=== PATIENT | female | born 1940 | race Caucasian/White ===

== ENCOUNTER 2016-06-18 05:50 | Inpatient (IN) | payer OTHER ==
[~2016-06-18] VITALS: Ht 165.1 cm; Wt 54.3 kg
[2016-06-18] VITALS (7 sets, daily range): BP systolic 145–159; BP diastolic 82–94; PULSE 75–93; TEMP 36.3–36.8; O2SAT 94–98; Ht 165.1 cm; Wt 54.3 kg
[~2016-06-18 05:50] MED LIST: ACET1TAB84 PO; ASPI81TA28 PO; CALC500C70 PO; DYZ PO; ESTR0.5T3 PO; GLUCTAB7 PO; MULT-845 PO; RXC5 PO; SIMV40TA2 PO
[2016-06-18] MEDS ORDERED: HYDROmorphone INJ 0.5 MG/0.5 ML SYR IV STA (06:41)
[2016-06-18] MEDS ORDERED: SODIUM CHLORIDE 0.9% 500ML 500 ML IV STA (06:41)
[2016-06-18] MEDS ORDERED: ONDANSETRON INJ 2 MG/ML 2 ML VIAL IV STA (06:41)
--- NOTE | 2016-06-18 06:45 | EMERGENCY ROOM VISIT NOTE ---
History Report prepared by Ramesh: [facility] Under the Supervision of: Dr. Albaro Gonsales M.D. First contact with patient: 06:35 Chief Complaint: NECK PAIN Stated Complaint: NECK PAIN History of Present Illness The patient is a 75 year old female who presents to the Emergency Room with complaints of persistent neck pain over the past several days. Her pain is worsened with any movement of her head and neck. The patient had neck surgery performed by Dr. Beverly 4 days [employer]. Since then, she has had continuous neck pain. She has also had significant difficulty swallowing and has been unable to take her pain medications. When she tries to drink liquids, she either chokes or develops muscular neck pain. She also complains of shaking, nausea and some abdominal discomfort. She has not had a bowel movement since prior to her surgery. Her current discomfort is a 9/10 in severity. Source of History: patient Onset: several days [employer] Position: neck Symptom Intensity: 9/10 Timing: other (persistent) Modifying Factors (Worsening): movement Associated Symptoms: + abdominal pain (discomfort - no BMs in a few days), + nausea Note: Other complaints: difficulty swallowing Review of Systems See HPI for pertinent positives & negatives. A total of 10 systems reviewed and were otherwise negative. Past Medical & Surgical Medical Problems: (1) Cervical stenosis of spinal canal (2) Dysphagia (3) HTN (hypertension) Surgical Problems: (1) H/O spinal fusion (2) H/O: hysterectomy (3) History of appendectomy Family History Cancer Heart disease Hypertension Lung disease Social History Smoking Status: Never Smoker Alcohol Use: none Marital Status: Occupation Status: unemployed Current/Historical Medications Scheduled Aspirin (Aspirin Ec), 81 MG PO QAM Estradiol (Estradiol), 1 TAB PO DAILY Wrzfnocbckf-Jorvjsckdjg-Jut C- (Glucosamine Chondroitin), 1 TAB PO QAM Multiple Vitamins W/ Minerals (Centrum Silver Adult 50+), 1 TAB PO QAM Simvastatin (Zocor), 40 MG PO QPM Triamterene/Hctz (Dyazide 37.5MG/25MG *), 1 CAP PO QAM Scheduled PRN Acetaminophen (Tylenol Arthritis Ext Rel), 650 MG PO Q8H PRN for Pain Oxycodone HCl (Oxycodone HCl), 5-10 MG PO Q4H PRN for moderate-severe pain Allergies Coded Allergies: Amlodipine (Verified Adverse Reaction, Intermediate, ANKLES SWELL UP, ) Physical Exam Vital Signs Date Time Temp Pulse Resp B/P Pulse Ox O2 Delivery O2 Flow Rate FiO2 06/18/16 10:04 100 06/18/16 09:40 96 18 137/90 98 Room Air 06/18/16 08:30 93 18 161/118 94 Nasal Cannula 2.0 06/18/16 07:13 77 06/18/16 07:08 95 Nasal Cannula 2.0 06/18/16 07:07 84 16 156/94 95 Nasal Cannula 2.0 06/18/16 07:06 94 Room Air 06/18/16 05:56 36.7 94 20 157/90 97 Room Air Physical Exam GENERAL: Patient is a healthy-appearing well-nourished 75 year old female HEAD: Normocephalic atraumatic EYES: Ocular movements intact pupils equal and react to light OROPHARYNX mucous membranes are moist no exudates present no erythema or edema present NECK: C-collar in place, surgical dressings in place. CHEST: Good equal expansion LUNGS: Clear and equal to auscultation CARDIAC: Normal S1 and S2 ABDOMEN: Soft nontender no guarding BACK: No CVA tenderness EXTREMITIES: No pain upon palpation normal muscle strength in all groups no clubbing cyanosis or edema NEURO: Patient is following commands is answering questions appropriately. Alert and oriented x3 Cranial Nerves 2-12 grossly intact Medical Decision & Procedures ER Provider Diagnostic Interpretation: X-ray results as stated below per my interpretation and radiologist interpretation. Other radiology results as stated below per my review and radiologist interpretation: CHEST ONE VIEW PORTABLE HISTORY: Atrial fibrillation. COMPARISON: Chest 06/09/2016. FINDINGS: Linear density at the left lung base consistent with subsegmental atelectasis or scarring. The lungs are otherwise clear. The heart is normal in size. No pleural effusions. No pneumothorax. Interval cervical spinal fusion hardware. IMPRESSION: No acute process. Electronically signed by: Bry Stout M.D. 06/18/2016 7:[address] DOSE: 486.01 mGy.cm HISTORY: Pain. Dyspnea. Pt c/o severe pain after surgery TECHNIQUE: Multiaxial CT images of the cervical spine were performed and reformatted in the sagittal and coronal plane without the use of contrast. COMPARISON: None. FINDINGS: No fractures. No subluxation. Prevertebral soft tissues and the C1-C2 interval are intact. No pneumothorax. Findings of an anterior fusion at C3, C4, C5, and C6. At C5 there has been a corpectomy. No well-defined evidence for major central stenotic process of the spinal canal or neural foramina. All hardware appears to be intact. Note is made of mild subglottic edema at the base of the epiglottis on the right as well as the region of the vocal cords on the right. This displaces the glottic airway slightly to the left. IMPRESSION: 1. Unremarkable postoperative changes to the cervical spine.. 2. No acute process of that structure. 3. Mild right lateral soft tissue edema base of the epiglottis and to lesser extent right focal cord region slightly displacing the airway to the left. Electronically signed by: Veto Grant M.D. 06/18/2016 7:57 AM SOFT TISSUE NECK CT WITH INTRAVENOUS CONTRAST HISTORY: Postop. Pt c/o severe neck pain TECHNIQUE: Multiaxial CT images of the neck were performed following the use of intravenous contrast. COMPARISON STUDY: Cervical spine MRI 06/01/2016. FINDINGS: No focal lung consolidations identified. Mild biapical pleural-parenchymal scarring. The trachea is midline and is patent. The visualized paranasal sinuses and mastoid air cells are clear. Interval anterior cervical discectomy and fusion from C3 through C6 with a C5 corpectomy and bone graft. The hardware appears intact. The major cervical vessels enhance normally. The left vertebral artery is hypoplastic in comparison to the right. The thyroid gland enhances normally. The submandibular and parotid glands are symmetric bilaterally. No loculated fluid collections to suggest an abscess. The epiglottis is normal in thickness. Mild edema/fluid within the prevertebral soft tissues and bilateral carotid spaces. There is also mild mucosal thickening within the hypopharynx and supraglottic soft tissues. This results in mild to moderate narrowing of the supraglottic airway. Symmetric fluid within the bilateral sternoclavicular joints. These are consistent with small to moderate joint effusions. IMPRESSION: 1. Postoperative changes consistent with C3-C6 anterior cervical discectomy and fusion. Please refer to the same day cervical spine CT for further evaluation of the bony structures. 2. Mild edema/fluid within the prevertebral soft tissues and bilateral carotid spaces. There is also mild mucosal thickening within the hypopharyngeal/supraglottic soft tissues. This results in mild to moderate narrowing of the supraglottic airway. However, the degree of edema/fluid within the neck is not unexpected for recent postoperative change. There are no loculated fluid collections to suggest an abscess. 3. The epiglottis is normal in thickness. 4. Symmetric mild to moderate bilateral sternoclavicular joint effusions. Electronically signed by: Bry Stout M.D. 06/18/2016 8:11 AM Laboratory Results 06/18/16 06:58 Red Blood Count 4.28, Mean Corpuscular Volume 89.7, Mean Corpuscular Hemoglobin 31.1, Mean Corpuscular Hemoglobin Concent 34.6, Mean Platelet Volume 10.5, Neutrophils (%) (Auto) 72.9, Lymphocytes (%) (Auto) 11.7, Monocytes (%) (Auto) 14.9, Eosinophils (%) (Auto) 0.2, Basophils (%) (Auto) 0.2, Neutrophils # (Auto ) 7.18, Lymphocytes # (Auto) 1.15, Monocytes # (Auto) 1.47, Eosinophils # (Auto ) 0.02, Basophils # (Auto) 0.02 06/18/16 06:58 Test 06/18/16 06:56 06/18/16 06:58 06/18/16 07:01 06/18/16 07:30 Bedside Glucose 105 mg/dl (70-90) White Blood Count 9.85 K/uL (4.8-10.8) Red Blood Count 4.28 M/uL (4.2-5.4) Hemoglobin 13.3 g/dL (12.0-16.0) Hematocrit 38.4 % (37-47) Mean Corpuscular Volume 89.7 fL (80-100) Mean Corpuscular Hemoglobin 31.1 pg (25-34) Mean Corpuscular Hemoglobin Concent 34.6 g/dl (32-36) Platelet Count 200 K/uL (130-400) Mean Platelet Volume 10.5 fL (7.4-10.4) Neutrophils (%) (Auto) 72.9 % Lymphocytes (%) (Auto) 11.7 % Monocytes (%) (Auto) 14.9 % Eosinophils (%) (Auto) 0.2 % Basophils (%) (Auto) 0.2 % Neutrophils # (Auto) 7.18 K/uL (1.4-6.5) Lymphocytes # (Auto) 1.15 K/uL (1.2-3.4) Monocytes # (Auto) 1.47 K/uL (0.11-0.59) Eosinophils # (Auto) 0.02 K/uL (0-0.5) Basophils # (Auto) 0.02 K/uL (0-0.2) RDW Standard Deviation 47.8 fL (36.4-46.3) RDW Coefficient of Variation 14.6 % (11.5-14.5) Immature Granulocyte % (Auto) 0.1 % Immature Granulocyte # (Auto) 0.01 K/uL (0.00-0.02) Erythrocyte Sedimentation Rate 15 mm/hr (0-21) Est Creatinine Clear Calc Drug Dose 87.0 ml/min Estimated GFR () 110.5 Estimated GFR (Non- 95.3 BUN/Creatinine Ratio 25.6 (10-20) Calcium Level 7.8 mg/dl (8.5-10.1) Total Bilirubin 1.0 mg/dl (0.2-1) Direct Bilirubin 0.2 mg/dl (0-0.2) Aspartate Amino Transf (AST/SGOT) 19 U/L (15-37) Alanine Aminotransferase (ALT/SGPT) 28 U/L (12-78) Alkaline Phosphatase 63 U/L (45-117) Total Creatine Kinase 88 U/L (26-192) Creatine Kinase MB 1.3 ng/ml (0.5-3.6) Creatine Kinase MB Ratio 1.5 (0-3.0) Troponin I 0.017 ng/ml (0-0.045) C-Reactive Protein 1.41 mg/dl (0-0.29) Total Protein 6.5 gm/dl (6.4-8.2) Albumin 3.4 gm/dl (3.4-5.0) Thyroid Stimulating Hormone (TSH) 1.730 uIu/ml (0.300-4.500) Bedside Hemoglobin 14.3 g/dl (12.0-16.0) Bedside Hematocrit 42 % (37-47) Bedside Sodium 139 mEq/L (135-144) Bedside Potassium 2.8 mEq/L (3.3-5.0) Bedside Chloride 96 mEq/L (101-112) Bedside Total CO2 25 mEq/l (24-31) Anion Gap 22.0 mmol/L (16-25) Bedside Blood Urea Nitrogen 13 mg/dl (7-18) Bedside Creatinine 0.4 mg/dl (0.6-1.3) Bedside Glucose (other) 115 mg/dl (70-99) Bedside Ionized Calcium (Marlo) 1.02 mmol/l (1.12-1.32) Urine Color YELLOW Urine Appearance CLEAR (CLEAR) Urine pH 8.5 (4.5-7.5) Urine Specific [place] 1.010 (1.000-1.030) Urine Protein NEG (NEG) Urine Glucose (UA) NEG (NEG) Urine Ketones NEG (NEG) Urine Occult Blood TRACE (NEG) Urine Nitrite NEG (NEG) Urine Bilirubin NEG (NEG) Urine Urobilinogen NEG (NEG) Urine Leukocyte Esterase NEG (NEG) Urine WBC (Auto) 0 /hpf (0-5) Urine RBC (Auto) 5-10 /hpf (0-4) Urine Hyaline Casts (Auto) 0 /lpf (0-5) Urine Epithelial Cells (Auto) 10-20 /lpf (0-5) Urine Bacteria (Auto) NEG (NEG) Test 06/18/16 08:30 Prothrombin Time 10.9 SECONDS (9.0-12.0) Prothromb Time International Ratio 1.0 (0.9-1.1) Activated Partial Thromboplast Time 24.2 SECONDS (21.0-31.0) Partial Thromboplastin Ratio 0.9 Labs reviewed by ED physician. Medications Administered Medications (Trade) Dose Ordered Sig/Uche Route Start Time Stop Time Status Last Admin Dose Admin Hydromorphone HCl (Dilaudid Inj) 0.5 mg NOW STAT IV 06/18/16 06:41 06/18/16 06:45 DC 06/18/16 07:02 0.5 MG Ondansetron HCl 4 mg 4 mg NOW STAT IV 06/18/16 06:41 06/18/16 06:45 DC 06/18/16 07:01 4 MG Sodium Chloride (Nss 500ml) 500 ml @ 999 mls/hr Q31M STAT IV 06/18/16 06:41 06/18/16 07:11 DC 06/18/16 06:41 999 MLS/HR Potassium Chloride (Kcl 10 Meq / Wtr) 10 meq NOW STAT IV 06/18/16 07:21 06/18/16 07:23 DC 06/18/16 08:02 10 MEQ Potassium Chloride (Kcl 10 Meq / Wtr) 10 meq NOW STAT IV 06/18/16 07:21 06/18/16 07:23 DC 06/18/16 09:02 10 MEQ ECG Indication: other (neck pain) Rate (beats per minute): 77 Rhythm: atrial flutter Findings: no acute ischemic change, other (old anterior infarct) Comparison ECG Date: 06/09/16 Change: Atrial fibrillation is new. ED Course 0637: Past medical records reviewed. The patient was evaluated in room B9. A complete history and physical examination was performed. 0641: Ordered NSS 500 ml @ 999 mls/hr IV, Zofran Inj 4 mg IV, Dilaudid Inj 0.5 mg IV. 0721: Ordered Edna Ciel Elix 40 meq PO, Kcl 10 meq/wtr 10 meq IV x2. 0728: I reassessed the patient and updated her on test results so far. 0945: Upon reexamination the patient is feeling slightly better. I discussed results and treatment plan with the patient. She verbalizes agreement and understanding. 0952: I discussed the case with Dr. Beverly - Orthopedic Surgery. He said he will trial her on Decadron and recommended that the patient be hospitalized through medicine. 1023: I discussed the case with Dr. Dan - [facility] [place] Hospitalist. The patient will be evaluated for further management. Medical Decision Differential diagnosis: Etiologies such as fracture, dislocation, neurovascular compromise, compartment syndrome, soft tissue injury, as well as others were entertained. This is a 75-year-old feel who presents emergency Department with continued neck pain after having neck surgery on Tuesday. In addition the patient is in a new onset atrial fibrillation. Her potassium was also found to be 2.8. The patient reports she has not been eating well or drinking due to the pain. For this reason IV was established, the patient was given Dilaudid, Zofran. Repeat examination revealed improvement patient's symptoms. The patient's CAT scan is concerning for some swelling so I did discuss the case with Dr. Beverly who agreed to see the patient. He asked that we admit the patient patient was in agreement with the treatment plan. Consults Time Called: 08 Consulting Physician: Dr. Beverly - Orthopedic Surgery Returned Call: [phone] I discussed the case with him. He said he will trial her on Decadron and recommended that the patient be hospitalized through medicine. Additional Consults: Time Called: 1020 Consulted Physician: Dr. Dan - [facility] [place] Hospitalist Returned Call: [phone] Additional Comments: I discussed the case with him. The patient will be evaluated for further management. Impression Primary Impression: Neck pain Additional Impressions: New onset atrial fibrillation, Hypokalemia Scribe Attestation The scribe's documentation has been prepared under my direction and personally reviewed by me in its entirety. I confirm that the note above accurately reflects all work, treatment, procedures, and medical decision making performed by me. Departure Information Dispostion Being Evaluated By Hospitalist Vasu Damon M.D. (PCP) Patient Instructions A Signature Page, My [facility]
[2016-06-18 07:10] LABS: BASO % 0.2 %; BASO ABS # 0.02 K/uL (0-0.2); COMPLETE YES; EOS % 0.2 %; HEMATOCRIT 38.4 % (37-47); IG% 0.1 %; LYMPH % 11.7 %; LYMPH ABS # 1.15 K/uL (1.2-3.4); MEAN CELL VOLUME 89.7 fL (80-100); MEAN CORPUSCULAR HEMOGLOBIN 31.1 pg (25-34); MEAN CORPUSCULAR HGB CONC 34.6 g/dl (32-36); MEAN PLATELET VOLUME 10.5 fL (7.4-10.4); MONO % 14.9 %; NEUT % 72.9 %; PLATELET COUNT 200 K/uL (130-400); RED BLOOD COUNT 4.28 M/uL (4.2-5.4); WHITE BLOOD COUNT 9.85 K/uL (4.8-10.8)
[2016-06-18 07:16] LABS: ISTAT CREATININE 0.4 mg/dl (0.6-1.3); ISTAT HEMOGLOBIN 14.3 g/dl (12.0-16.0); ISTAT IONIZED CALCIUM 1.02 mmol/l (1.12-1.32)
[2016-06-18] MEDS ORDERED: POTASSIUM CHLORIDE 20 MEQ/15 ML UDC PO STA ×2 (07:21→10:54)
[2016-06-18] MEDS ORDERED: POTASSIUM CHLORIDE 10 MEQ / 100ML WTR IV STA ×2 (07:21)
[2016-06-18 07:27] LABS: BUN/CREATININE RATIO 25.6 (10-20); CALCIUM 7.8 mg/dl (8.5-10.1); CREATININE 0.5 mg/dl (0.60-1.20); POTASSIUM 2.9 mmol/L (3.5-5.1)
[2016-06-18 07:38] LABS: C-REACTIVE PROTEIN 1.41 mg/dl (0-0.29); THYROID STIMULATING HORMONE 1.73 uIu/ml (0.300-4.500)
--- NOTE | 2016-06-18 07:59 | DIAGNOSTIC IMAGING REPORT ---
CERVICAL SPINE CT CT DOSE: 486.01 mGy.cm HISTORY: Pain. Dyspnea. Pt c/o severe pain after surgery TECHNIQUE: Multiaxial CT images of the cervical spine were performed and reformatted in the sagittal and coronal plane without the use of contrast. COMPARISON: None. FINDINGS: No fractures. No subluxation. Prevertebral soft tissues and the C1-C2 interval are intact. No pneumothorax. Findings of an anterior fusion at C3, C4, C5, and C6. At C5 there has been a corpectomy. No well-defined evidence for major central stenotic process of the spinal canal or neural foramina. All hardware appears to be intact. Note is made of mild subglottic edema at the base of the epiglottis on the right as well as the region of the vocal cords on the right. This displaces the glottic airway slightly to the left. IMPRESSION: 1. Unremarkable postoperative changes to the cervical spine.. 2. No acute process of that structure. 3. Mild right lateral soft tissue edema base of the epiglottis and to lesser extent right focal cord region slightly displacing the airway to the left. Electronically signed by: Veto Grant M.D. 06/18/2016 7:57 AM
[2016-06-18 08:00] LABS: URINE APPEARANCE CLEAR (CLEAR); URINE BILIRUBIN NEG (NEG); URINE COLOR YELLOW; URINE NITRITE NEG (NEG); URINE PH 8.5 (4.5-7.5); UROBILINOGEN NEG (NEG)
[2016-06-18] MEDS ORDERED: OPTIRAY 320 IV PRN (08:00)
[2016-06-18 08:01] LABS: MANUAL MICROSCOPIC REQUIRED? NO; REVIEW REQ? NO
--- NOTE | 2016-06-18 08:01 | DIAGNOSTIC IMAGING REPORT ---
CHEST ONE VIEW PORTABLE HISTORY: Atrial fibrillation. COMPARISON: Chest 06/09/2016. FINDINGS: Linear density at the left lung base consistent with subsegmental atelectasis or scarring. The lungs are otherwise clear. The heart is normal in size. No pleural effusions. No pneumothorax. Interval cervical spinal fusion hardware. IMPRESSION: No acute process. Electronically signed by: Bry Stout M.D. 06/18/2016 7:59 AM
[2016-06-18 08:07] LABS: CKMB/CK RATIO 1.5 (0-3.0)
--- NOTE | 2016-06-18 08:13 | DIAGNOSTIC IMAGING REPORT ---
SOFT TISSUE NECK CT WITH INTRAVENOUS CONTRAST HISTORY: Postop. Pt c/o severe neck pain TECHNIQUE: Multiaxial CT images of the neck were performed following the use of intravenous contrast. COMPARISON STUDY: Cervical spine MRI 06/01/2016. FINDINGS: No focal lung consolidations identified. Mild biapical pleural-parenchymal scarring. The trachea is midline and is patent. The visualized paranasal sinuses and mastoid air cells are clear. Interval anterior cervical discectomy and fusion from C3 through C6 with a C5 corpectomy and bone graft. The hardware appears intact. The major cervical vessels enhance normally. The left vertebral artery is hypoplastic in comparison to the right. The thyroid gland enhances normally. The submandibular and parotid glands are symmetric bilaterally. No loculated fluid collections to suggest an abscess. The epiglottis is normal in thickness. Mild edema/fluid within the prevertebral soft tissues and bilateral carotid spaces. There is also mild mucosal thickening within the hypopharynx and supraglottic soft tissues. This results in mild to moderate narrowing of the supraglottic airway. Symmetric fluid within the bilateral sternoclavicular joints. These are consistent with small to moderate joint effusions. IMPRESSION: 1. Postoperative changes consistent with C3-C6 anterior cervical discectomy and fusion. Please refer to the same day cervical spine CT for further evaluation of the bony structures. 2. Mild edema/fluid within the prevertebral soft tissues and bilateral carotid spaces. There is also mild mucosal thickening within the hypopharyngeal/supraglottic soft tissues. This results in mild to moderate narrowing of the supraglottic airway. However, the degree of edema/fluid within the neck is not unexpected for recent postoperative change. There are no loculated fluid collections to suggest an abscess. 3. The epiglottis is normal in thickness. 4. Symmetric mild to moderate bilateral sternoclavicular joint effusions. Electronically signed by: Bry Stout M.D. 06/18/2016 8:11 AM
[2016-06-18 08:54] LABS: PARTIAL THROMBOPLASTIN RATIO 0.9; PROTHROMBIN TIME (PATIENT) 10.9 SECONDS (9.0-12.0)
[2016-06-18] MEDS ORDERED: ONDANSETRON INJ 2 MG/ML 2 ML VIAL IV PRN (11:00)
[2016-06-18] MEDS ORDERED: NON-FORMULARY MEDICATION (Acetaminophen (Tylenol Arthritis Ext Rel) 650 MG) PO PRN (11:00)
[2016-06-18] MEDS ORDERED: MAGNESIUM HYDROXIDE SUSP 30 ML UDC PO PRN (11:00)
[2016-06-18] MEDS ORDERED: ALUMINUM/MAGNESIUM/SIMETH (MAALOX MAX) 30 ML UDC PO PRN (11:00)
[2016-06-18] MEDS ORDERED: ACETAMINOPHEN 325 MG TAB PO PRN (11:00)
[2016-06-18] MEDS ORDERED: IV FLUIDS COMPLETED PRN (11:15)
[2016-06-18] MEDS ORDERED: ONDANSETRON INJ 2 MG/ML 2 ML VIAL ONE (11:17)
--- NOTE | 2016-06-18 13:52 | ORTHOPEDIC CONSULTATION ---
DATE OF CONSULTATION: 06/18/2016 HISTORY OF PRESENT ILLNESS: Mrs. Dan is a 75-year-old female well known to de status post anterior cervical discectomy and fusion. She presents to the Emergency Room with difficulty swallowing and new set of rate controlled AFib. PHYSICAL EXAMINATION: Her incision is clean, dry and intact. There is some modest appreciable swelling in the cervical region, but it is not significant. There is no drainage. She has excellent strength to testing upper extremities and most importantly no evidence of stridor or difficulty breathing. IMAGING DATA: CAT scan of the cervical spine does demonstrate a small hematoma at the perioperative site. ASSESSMENT: Status post anterior cervical discectomy and fusion, corpectomy. PLAN: At this time, we did discuss possible I\T\D evacuation of hematoma. At this point; however, she is breathing without any shortness of breath or any difficulty. She demonstrates 90% SpO2 on room air. She is comfortable and ambulating well. She would prefer to continue observation, which is completely reasonable. She will be admitted and we are following her closely. We will begin IV Decadron to decrease inflammation and hopefully, assist with her swallowing.
[2016-06-18] MEDS ORDERED: HYDROmorphone INJ 1 MG/ML SYR IV PRN (14:15)
[2016-06-18] MEDS ORDERED: ONDANSETRON 8 MG/54 ML D5W IV ONE (14:30)
[2016-06-18] MEDS ORDERED: HYDROmorphone INJ 1 MG/ML SYR IV STA (14:43)
[2016-06-18] MEDS ORDERED: SOD PHOSPHATE/SOD BIPHOSPHATE ENEMA 132 ML BTL PR STA (14:43)
[2016-06-18] MEDS ORDERED: ONDANSETRON INJ 8 MG in DEXTROSE 5% 50ML 50 ML IV ONE (14:45)
[2016-06-18] MEDS: SODIUM CHLOR 0.45% + 20MEQ KCL 1,000 ML IV SCH (14:58)
[2016-06-18] MEDS ORDERED: DEXAMETHASONE INJ 4 MG in SYRINGE 0 ML IV ONE (15:00)
--- NOTE | 2016-06-18 15:20 | History and Physical ---
History & Physical admit #[id number]
[2016-06-18] MEDS: ONDANSETRON INJ 2 MG/ML 2 ML VIAL IV. SCH ×2 (16:00→22:18)
[2016-06-18 16:23] LABS: CALCIUM 8.3 mg/dl (8.5-10.1); CREATININE 0.53 mg/dl (0.60-1.20); MAGNESIUM 1.9 mg/dl (1.8-2.4)
--- NOTE | 2016-06-18 16:28 | HISTORY & PHYSICAL EXAMINATION ---
DATE OF ADMISSION: 06/18/2016 CHIEF COMPLAINT: Throat pain, abdominal pain, nausea and difficulty swallowing. HISTORY OF PRESENT ILLNESS: The patient is a 75-year-old female who was just discharged 2 days ago after a neck surgery, it was like a C3-C4 anterior cervical discectomy and fusion and C5 corpectomy and allograft. She noted she was generally feeling lousy, but feels worse now. She has neck pain. She has abdominal pain. She has constant nausea. She cannot eat or or drink and she feels like she is getting dehydrated. She notes she has not had a bowel movement at least in the last couple of days. She has left lower and a little bit diffuse abdominal pain which she relates feels pretty consistent with constipation. She does not have any shortness of breath. She notes the lower abdominal and neck symptoms are about equal. REVIEW OF SYSTEMS: Otherwise negative, as best can be ascertained. PAST MEDICAL HISTORY: Cervical spine disease, valvular heart disease, hypertension, lumbar disc degeneration, hyperlipidemia, prior hypokalemia, possible prior atrial fibrillation, osteoarthritis. MEDICATIONS: Aspirin 81 mg daily, Celebrex 200 mg daily, estradiol daily, glucosamine 1500 mg as directed, multivitamin daily, oxycodone 5 mg q. 4 hours p.r.n. pain, simvastatin 40 mg at bedtime, Dyazide 37.5/25 daily, Tylenol p.r.n. pain, Valtrex p.r.n. cold sore outbreak. PAST SURGICAL HISTORY: Most relevant is her procedure last week with her C-spine. She has also had other back surgeries, appendectomy, tonsillectomy, vaginal hysterectomy and bilateral temporal brow lift that was due to impact on her vision. FAMILY HISTORY: Her mother had asthma. Brother with hypertension and family history of melanoma. SOCIAL HISTORY: She has never smoked. She is retired. She has a supportive family. PHYSICAL EXAMINATION: VITAL SIGNS: Her initial vitals showed a temp 36.7, pulse 94, respiratory rate 20, blood pressure 157/90, 97% on room air. GENERAL: She is awake, alert, oriented x3, uncomfortable appearing, rolling around the bed in degree due to uncomfortable belly, uncomfortable neck and nausea. She shows no respiratory distress. HEENT: Normocephalic, atraumatic. Mucous membranes slightly dry. NECK: Shows an anterior incision without any surrounding bruising or erythema, no exudate. The incision appears to be clean and dry. CARDIOVASCULAR: Irregularly irregular without any clearly audible rubs, murmurs, or gallops. LUNGS: Clear to auscultation bilaterally. No rales, rhonchi, or wheezes with good effort. ABDOMEN: Soft, nondistended. Mild left lower quadrant tenderness without any guarding, rebound or rigidity. The remainder of her abdomen is benign. EXTREMITIES: Show no cyanosis, clubbing or edema. NEUROLOGIC: Full exam is difficult to assess due to her pain and nausea and therefore lack of cooperation, but she shows no focal deficits in her arms or legs and cranial nerves II through XII are grossly intact as well. SKIN: Shows no rashes, no pallor or icterus. Again, no erythema around her incision. MUSCULOSKELETAL: Full exam is deferred at this time but shows no gross lesions. MENTAL STATUS: Shows her to be a bit agitated and irritable but good recent and remote recall. Mood and affect, fitting to the situation. LABS AND DIAGNOSTICS: CBC shows a white count of 9.85, hemoglobin 13.3, platelets 200, sed rate of 15. Complete metabolic panel with sodium 138, potassium 2.9, chloride 102, CO2 of 28, BUN 13, creatinine 0.5, calcium 7.8, glucose 111, total bilirubin 1 with a direct of 0.2, AST 19, ALT 28, alkaline phosphatase 63. Cardiac enzymes are negative including a troponin of 0.017. CRP of 1.41, total protein 6.5, albumin 3.4. TSH 1.730. PT 10.9, PTT 24.2. Urinalysis yellow, clear, specific gravity 1.010, trace blood, 5-10 red cells, 10-[address] soft tissue of the neck shows biapical pleural parenchymal scarring. Trachea midline and patent, visualized perinasal sinuses and mastoid air cells are clear, anterior discectomy and fusion C3 through C6 with the C5 corpectomy and bone graft, hardware appearing intact. Cervical vessels enhancing normally, left vertebral artery hypoplastic compared to the right. Thyroid enhances normally, submandibular and parotid glands are symmetric bilaterally, no loculated fluid collections to suggest an abscess, epiglottis normal thickness, mild edema and fluid within the prevertebral soft tissues and bilateral carotid spaces, mild mucosal thickening within the hypopharynx and supraglottic soft tissues resulting in moderate narrowing of the supraglottic airway, symmetric fluid within the bilateral sternoclavicular joints consistent with small to moderate joint effusion. CT C-spine more in terms of bony windows shows prevertebral soft tissue C1-C2 interval are intact. No pneumothorax. Findings of an anterior fusion, C3, C4, C5 and C6. At C5 there is a corpectomy. No evidence for major central stenosis. Hardware appears to be intact. Subglottic edema at the base of the epiglottis on the right in the region of the vocal cords displacing the glottic airway slightly to the left. Chest x-ray shows a linear density at the left lung base consistent with subsegmental atelectasis or scarring. Lungs are otherwise clear. Heart normal in size. ASSESSMENT AND PLAN: 1. Neck pain. This appears to be due to postop edema. There is nothing that really appears to be hematoma or infection. Orthopedics has seen her and wants to initiate Decadron. Will continue this IV as well as meds for pain control and nausea control. 2. Lower abdominal pain. The patient appears to be correcting her presumptive diagnosis that this relates to constipation, given that she is not really able to take p.o. very well right now. We will utilize an enema. I suspect that once she has better bowel movements, a lot of her pain and nausea will improve a good deal too. 3. Hypokalemia, probably due to poor p.o. intake. She does appear to have a prior history of having some hypokalemia. If this is persistent, we will need to research further, but for now will correct and check a magnesium and then follow up levels later on today. 4. Atrial fibrillation. It is unclear if this is totally new to the patient or not. As I was talking to her about it, she seemed unaware if this is a prior diagnosis, but she was also in a decent amount of pain and nausea and given that it is not really an acute issue at the time we agreed to discuss it further later on, but on chart review it does note that she has had atrial fibrillation probably at least once before. At any rate, she is rate controlled. Her most recent echocardiogram was just a little over 2 months ago showing an ejection fraction of 55%-60%, but moderate mitral regurgitation, moderate tricuspid regurg and mild aortic regurge, so I suspect at least to a degree her atrial fibrillation is from valvular heart disease. Her TSH was normal at 1.73. She is rate controlled and her blood pressures allow margin of error to initiate meds. Once she is able to take p.o. given that it appears to be from leaky valves on the left side that are probably putting back pressure on the left atrium, will initiate a low dose carvedilol given her rates being overall good, probably will start 3.125 b.i.d. and then follow. We will also start to discuss with her potential risks and benefits of anticoagulation. 5. Nausea. We will utilize Zofran scheduled until tomorrow and then reassess towards p.r.n. 6. Difficulty taking p.o. We will gently hydrate her with half normal with 20 of potassium at 75 an hour. 7. Deep venous thrombosis prophylaxis. Hold off on any anticoagulation for now given her recent neck surgery. I discussed with orthopedics and it certainly are reticent for her to be on any anticoagulation at this time unless absolutely necessary, which is understandable.
--- NOTE | 2016-06-18 18:45 | Progress Note ---
Progress Note revisited feels that neck swelling is going down able to handle some liquids better than she thought she could no BM yet but generally feeling better overall
[2016-06-18] MEDS: DEXAMETHASONE INJ 4 MG in SYRINGE 0 ML IV SCH (19:46)
[2016-06-18] MEDS: POLYETHYLENE (MIRALAX) 17 GM PACK PO SCH (20:12)
[2016-06-19] MEDS: DEXAMETHASONE INJ 4 MG in SYRINGE 0 ML IV SCH ×4 (02:00→20:18)
[2016-06-19 04:05] VITALS: BP 153/84; PULSE 77; TEMP 36.7; O2SAT 97
[2016-06-19] MEDS: ONDANSETRON INJ 2 MG/ML 2 ML VIAL IV. SCH ×3 (04:32→15:52)
[2016-06-19] MEDS: SODIUM CHLOR 0.45% + 20MEQ KCL 1,000 ML IV SCH ×2 (04:32→18:29)
[2016-06-19] MEDS ORDERED: PERFLUTREN LIPID MICROSPHERE (DEFINITY) IV ONE (07:26)
[2016-06-19] MEDS ORDERED: NON-FORMULARY MEDICATION (Glucosamine-Chondroitin-Vit C- (Glucosamine Chondroitin) 1 TAB) PO SCH (09:00)
[2016-06-19] MEDS ORDERED: ESTRADIOL 1 MG TAB PO SCH (09:00)
[2016-06-19] MEDS: ASPIRIN 81 MG ECTAB PO SCH (09:09)
[2016-06-19] MEDS: POLYETHYLENE (MIRALAX) 17 GM PACK PO SCH ×2 (09:10→20:18)
--- NOTE | 2016-06-19 10:05 | PROGRESS NOTE ---
DATE: 06/19/2016 DATE: 06/19/2016. SUBJECTIVE: This morning she states she is tolerating liquids better. Her pain is much more controlled. She denies any arm symptoms. She still demonstrates swelling in the perioperative region in the cervical spine. It is nontender. She is able to control secretions and denies any shortness of breath. ASSESSMENT: Status post anterior cervical discectomy, corpectomy and fusion with postop hematoma. PLAN: At this time, we both agree continued observation is warranted. We will reassess her tomorrow. She will notify us if there are any changes in her symptoms.
[2016-06-19 11:59] VITALS: BP 129/69; PULSE 98; TEMP 36.8; O2SAT 91
--- NOTE | 2016-06-19 15:05 | ECHOCARDIOGRAM REPORT ---
*NOTICE TO RECEIVING DEMOCRAT AGENCY This information is strictly Confidential and protected under [place] law. [place] law prohibits you from making any further disclosure of this information unless further disclosure is expressly permitted by the written consent of the person to whom it pertains or is authorized by law. A general authorization for the release of medical or other information is not sufficient for this purpose. Hospital accepts no responsibility if the information is made available to any other person, INCLUDING THE PATIENT. Interpretation Summary * Name: SARITHA PRASAD Study Date: 06/19/2016 06:48 AM BP: 153/84 mmHg * Patient Location: [facility]\S\N283\S\2 HR: 70 * : 1940 (M/d/yyyy) Gender: Female Height: 64 in * Age: 75 yrs Ethnicity: [place] Weight: 132 lb * Ordering Physician: Soham Hopkins * Referring Physician: Self, Referred * Performed By: Alex Grande RDCS * * Reason For Study: A-fib * BSA: 1.6 m2 * -- Conclusions -- * 1. Normal left ventricular size and systolic function. EF 60-65%. No regional wall motion abnormalities. No left ventricular hypertrophy. Type 1 diastolic dysfunction. * 2. The left atrium is mildly dilated. * 3. Mild aortic regurgitation. Sclerotic aortic valve without significant stenosis. * 4. Mild to moderate mitral regurgitation with restricted posterior leaflet. * 5. Mild to moderate tricuspid regurgitation. * 6. Normal estimated right ventricular systolic pressure; 33mmHg. * 7. Technically difficult study, enhanced with IV Definity. * 8. No prior study available for comparison. Procedure Details * A complete two-dimensional transthoracic echocardiogram was performed (2D, M-mode, Doppler and color flow Doppler). * The study was technically difficult. * The study was technically difficult, but visualization was adequate with the administration of Definity ultrasound contrast. * A contrast injection of Definity was performed to improve assessment of LV function. * Contrast was injected into an intravenous site in the right arm. * One vial of Definity ultrasound contrast was diluted in normal saline to a total volume of 10 ml. A total of '2' ml of solution was administered during imaging. * Lot # [id number] of Definity utilized for procedure. * Expiration date DEC 04. * The attending nurse who injected the contrast agent was DEION Barba. Left Ventricle * Normal left ventricular size and systolic function. EF 60-65%. No regional wall motion abnormalities. Type 1 diastolic dysfunction. * There is normal left ventricular wall thickness. Right Ventricle * The right ventricle is normal in size and function. * The right ventricular systolic function is normal as assessed by tricuspid annular plane systolic excursion (TAPSE) (normal >1.5 cm). Atria * The left atrium is mildly dilated. * Right atrial size is normal. * There is no evidence of atrial septal defect, but resolution does not allow assessment for a patent foramen ovale. Mitral Valve * Restricted posterior leaflet. * There is no mitral valve stenosis. * There is mild to moderate mitral regurgitation. Tricuspid Valve * The tricuspid valve anatomy is normal. * There is no tricuspid stenosis. * There is mild to moderate tricuspid regurgitation. Aortic Valve * The aortic valve is trileaflet. * Sclerotic aortic valve without significant stenosis. * Mild aortic regurgitation. Pulmonic Valve * The pulmonary valve is inadequately visualized, but the Doppler data is adequate for interpretation. * There is no pulmonic valvular stenosis. * Mild pulmonic valvular regurgitation. Great Vessels * The aortic root is normal size. * Ascending aorta of normal dimension * Mildly blunted pulmonary venous flow pattern. Pericardium/Pleural * There is no pericardial effusion. Great Vessels * Normal inferior vena cava size and collapsability with sniff indicates a normal right atrial pressure of 3 mmHg MMode 2D Measurements and Calculations IVSd 0.92 cm IVSs 1.3 cm LVIDd 4.5 cm LVIDs 3.0 cm LVPWd 0.86 cm LVPWs 1.4 cm IVS/LVPW 1.1 FS 33.5 % EDV(Teich) 94.5 ml ESV(Teich) 35.6 ml EF(Teich) 62.4 % EDV(cubed) 93.8 ml ESV(cubed) 27.5 ml EF(cubed) 70.6 % % IVS thick 36.6 % % LVPW thick 60.8 % LV mass(C)d 132.8 grams LV mass(C)dI 81.0 grams/m\S\2 LV mass(C)s 128.4 grams LV mass(C)sI 78.3 grams/m\S\2 SV(Teich) 59.0 ml SI(Teich) 36.0 ml/m\S\2 SV(cubed) 66.2 ml SI(cubed) 40.4 ml/m\S\2 EPSS 0.58 cm Ao root diam 2.7 cm Ao root area 5.5 cm\S\2 ACS 1.8 cm LA dimension 3.6 cm asc Aorta Diam 2.5 cm LA/Ao 1.3 LVOT diam 2.0 cm LVOT area 3.2 cm\S\2 LVAd ap4 19.3 cm\S\2 LVLd ap4 5.6 cm EDV(MOD-sp4) 55.0 ml LVAs ap4 9.4 cm\S\2 LVLs ap4 4.4 cm ESV(MOD-sp4) 18.0 ml EF(MOD-sp4) 67.3 % LVAd ap2 26.8 cm\S\2 LVLd ap2 6.7 cm EDV(MOD-sp2) 89.0 ml LVAs ap2 13.3 cm\S\2 LVLs ap2 5.0 cm ESV(MOD-sp2) 29.0 ml EF(MOD-sp2) 67.4 % SV(MOD-sp4) 37.0 ml SI(MOD-sp4) 22.6 ml/m\S\2 SV(MOD-sp2) 60.0 ml SI(MOD-sp2) 36.6 ml/m\S\2 Doppler Measurements and Calculations MV E max silverio 111.1 cm/sec MV A max silverio 112.3 cm/sec MV E/A 0.99 MV dec time 0.19 sec Ao V2 max 196.1 cm/sec Ao max PG 15.4 mmHg Ao max PG (full) 11.7 mmHg Ao V2 mean 120.5 cm/sec Ao mean PG 6.8 mmHg Ao mean PG (full) 5.1 mmHg Ao V2 VTI 40.3 cm VIVEK(I,A) 1.6 cm\S\2 VIVEK(I,D) 1.6 cm\S\2 VIVEK(V,A) 1.6 cm\S\2 VIVEK(V,D) 1.6 cm\S\2 AI max silverio 512.0 cm/sec AI max PG 103.7 mmHg AI dec slope 304.7 cm/sec\S\2 AI P1/2t 492.1 msec LV V1 max PG 3.7 mmHg LV V1 mean PG 1.7 mmHg LV V1 max 95.9 cm/sec LV V1 mean 60.4 cm/sec LV V1 VTI 19.8 cm MR max silverio 657.0 cm/sec MR max PG 172.7 mmHg MR mean silverio 524.0 cm/sec MR mean PG 117.0 mmHg MR VTI 249.0 cm SV(Ao) 223.6 ml SI(Ao) 136.4 ml/m\S\2 SV(LVOT) 63.0 ml SI(LVOT) 38.4 ml/m\S\2 PA V2 max 95.0 cm/sec PA max PG 3.6 mmHg TR max silverio 274.0 cm/sec RVSP(TR) 33.0 mmHg RAP systole 3.0 mmHg
[2016-06-19 15:13] VITALS: BP 163/96; PULSE 86; TEMP 37; O2SAT 96
--- NOTE | 2016-06-19 18:18 | Progress Note ---
Subjective Date of Service: Jun 19, 2016. Subjective Pt evaluation today including: conversation w/ patient, conversation w/ family , physical exam, chart review, lab review, review of studies, conversation w/ cosmetic consultant, review of inpatient medication list feeling better - not great yet but definitely better. smiling. able to tolerate liquids well, but when she took her baby asa she then felt it stuck in her throat and then threw it up. since then feeling Ok. neck pain improving. no significant abdominal pain. never heard of having afib before. does know about MR and AI. Problem List Medical Problems: (1) Hypokalemia Status: Acute (2) Neck pain Status: Acute (3) New onset atrial fibrillation Status: Acute Review of Systems ros otherwise negative except for as above Objective Vital Signs Date Time Temp Pulse Resp B/P Pulse Ox O2 Delivery O2 Flow Rate FiO2 06/19/16 16:00 Room Air 06/19/16 15:13 37.0 86 18 163/96 96 06/19/16 12:00 Room Air 06/19/16 11:59 36.8 98 18 129/69 91 Room Air 06/19/16 08:00 Room Air 06/19/16 04:05 36.7 77 20 153/84 97 Room Air 06/19/16 04:00 Room Air 06/19/16 00:05 Room Air 06/18/16 23:34 36.7 75 19 149/82 98 Room Air 06/18/16 20:05 94 Room Air 06/18/16 19:23 36.5 93 20 156/94 94 Room Air Physical Exam General Appearance: no apparent distress Eyes: EOMI ENT: hearing grossly normal Neck: trachea midline, + pertinent finding (no extensive bruising, see neck exam done by Dr Beverly while i was in the room) Respiratory/Chest: no respiratory distress, no accessory muscle use Cardiovascular: regular rate, rhythm (converted to NSR - rate controlled) Extremities: normal range of motion Neurologic/Psychiatric: custom harvester II-XII nml as tested, alert, normal mood/affect Skin: normal color, warm/dry Assessment and Plan neck pain - due to post op changes. ongoing supportive care dysphagia - due to above, swelling. improving on decadron. continue day-to- day. home once able to tolerate PO well enough to sustain at home; if worsens or clearly on a plateau without day to day improvement, then would consider barium swallow to eval for degree of true compression. is improving, however. continue clears for today per ortho new onset afib -due to MR and atrial stretch -for now rate controlled - converted to NSR. once able to tolerate PO well - would add 3.125mg coreg daily-BID (depending on vitals) for rate control; discussed will need anticoagulation (since valvular, will have look to warfarin for now) - but we discussed risks/benefits (pt/family/myself/ortho) and for now will hold off until neck heals more so as to avoid iatrogenic bleeding complications in neck valvular heart disease -no active CHF - coreg as above once better able to take PO hypokalemia -improved DVT proph -anticoagulants relatively contraindicated due to bleed risk w neck; mechanical proph of dubious benefit and possible risk (falls, etc) - ambulation to be utilized. dispo - home once able to eat and drink reasonably
[2016-06-19 19:17] VITALS: BP 143/80; PULSE 66; TEMP 36.8; O2SAT 66
[2016-06-20] VITALS (8 sets, daily range): BP systolic 137–172; BP diastolic 68–96; PULSE 65–81; TEMP 36.5–36.9; O2SAT 93–99
[2016-06-20] MEDS: DEXAMETHASONE INJ 4 MG in SYRINGE 0 ML IV SCH ×4 (02:29→20:21)
[2016-06-20] MEDS: SODIUM CHLOR 0.45% + 20MEQ KCL 1,000 ML IV SCH ×2 (05:57→20:19)
[2016-06-20] MEDS: ASPIRIN 81 MG ECTAB PO SCH (08:21)
[2016-06-20] MEDS: POLYETHYLENE (MIRALAX) 17 GM PACK PO SCH ×2 (08:21→20:20)
[2016-06-20] MEDS ORDERED: NURSING DECISION MEDICATION ORDER SCH (20:30)
[2016-06-20] MEDS ORDERED: SODIUM CHLORIDE 0.65% NA SOLN 45 ML (OCEAN) PRN (20:45)
--- NOTE | 2016-06-20 23:02 | Progress Note ---
Subjective Date of Service: Jun 20, 2016. Subjective Pt evaluation today including: conversation w/ patient, physical exam, chart review, lab review Pain: none PO Intake: taking in clears, but having difficulty w/ that as well Voiding: no voiding problems continues with dysphagia - even jello / hot brother are difficult to swallow no numbness in arms/legs no sob or dyspnea Problem List Medical Problems: (1) Hypokalemia Status: Acute (2) Neck pain Status: Acute (3) New onset atrial fibrillation Status: Acute Review of Systems Constitutional: No fever ENT: + nasal symptoms Respiratory: No cough Cardiac: No chest pain Abdomen: No pain Objective Vital Signs Date Time Temp Pulse Resp B/P Pulse Ox O2 Delivery O2 Flow Rate FiO2 06/20/16 20:05 Room Air 06/20/16 19:24 36.9 67 20 152/84 93 Room Air 06/20/16 16:00 Room Air 06/20/16 15:19 36.8 68 18 150/85 97 Room Air 06/20/16 12:00 Room Air 06/20/16 11:23 36.9 66 18 144/82 97 Room Air 06/20/16 08:12 36.6 72 18 140/82 97 Room Air 06/20/16 08:00 Room Air 06/20/16 05:03 36.6 71 16 137/68 94 Room Air 06/20/16 04:00 Room Air 06/20/16 02:19 65 18 149/82 97 Room Air 06/20/16 00:30 36.5 81 20 172/96 99 Room Air 06/20/16 00:05 Room Air Physical Exam General Appearance: no apparent distress ENT: pharynx normal Neck: no JVD, + pertinent finding (incision right neck clean) Respiratory/Chest: lungs clear, no respiratory distress, no accessory muscle use Cardiovascular: regular rate, rhythm, no gallop, + systolic murmur (/6 LSB) Abdomen: normal bowel sounds, non tender, soft, no organomegaly Extremities: no pedal edema Assessment and Plan 75yo female: 1. dysphagia - 2nd to cervical spine swelling in the setting of recent c-spine surgery as well as reported hematoma. Remains on decadron. Will leave as is. Speech therapy consult in AM for swallow eval. No advancement in diet (clears). 2. recent cervical spine surgery by Dr. Beverly - no surgical intervention needed at this time for swelling. 3. recent paroxysmal a. fib - resolved, remains in NSR. No anticoagulation for at least 1 month according to orthopedics. Defer on beta lolita for now. 4. DVT proph - SCDs. 5. FEN - continue fluids, repeat BMP in am. In my clinical judgment this beneficiary meets acute admission criteria, established by [facility], that includes being hospitalized through two midnights. Continued [facility] stay due to: inadequate po fluid intake, inadequate oral pain control
[2016-06-21] MEDS: DEXAMETHASONE INJ 4 MG in SYRINGE 0 ML IV SCH ×4 (02:10→21:41)
[2016-06-21 05:06] VITALS: BP 163/84; PULSE 60; TEMP 36.7; O2SAT 95
[2016-06-21 07:21] VITALS: BP 155/85; PULSE 63; TEMP 36.6; O2SAT 97
[2016-06-21] MEDS: POLYETHYLENE (MIRALAX) 17 GM PACK PO SCH ×2 (07:35→21:00)
[2016-06-21] MEDS: ASPIRIN 81 MG ECTAB PO SCH (07:35)
[2016-06-21 08:25] LABS: BUN/CREATININE RATIO 25.4 (10-20); CALCIUM 8.4 mg/dl (8.5-10.1); CREATININE 0.56 mg/dl (0.60-1.20)
[2016-06-21] MEDS: SODIUM CHLOR 0.45% + 20MEQ KCL 1,000 ML IV SCH (10:48)
[2016-06-21 11:35] VITALS: BP 157/81; PULSE 60; TEMP 36.7; O2SAT 96
--- NOTE | 2016-06-21 12:42 | DIAGNOSTIC IMAGING REPORT ---
MODIFIED BARIUM SWALLOW CLINICAL HISTORY: Dysphagia status post cervical spine surgery. COMPARISON STUDY: No previous studies for comparison. FLUOROSCOPY TIME: 1.7 minutes. FINDINGS: No aspiration was identified with thin liquids, nectar thick liquids, pudding or crackers with paste. However, epiglottic inversion and laryngeal elevation were markedly diminished. Significant residuals were noted within the pyriform sinuses and vallecula. An anterior cervical spine fusion and discectomy was noted with corpectomy. IMPRESSION: 1. No tracheal aspiration identified. 2. Impaired swallowing mechanism with diminished epiglottic inversion and laryngeal elevation. Residuals within the vallecula and pyriform sinuses. 3. Full recommendations by speech pathology to follow. Electronically signed by: Devonte Vu M.D. 06/21/2016 12:41 PM
--- NOTE | 2016-06-21 13:07 | PROGRESS NOTE ---
DATE: 06/21/2016 SUBJECTIVE: She is feeling modest improvement over the past several days. She is tolerating liquids better today than yesterday. OBJECTIVE: On exam, the neck is still swollen but again I appreciate a modest improvement on a daily basis. There is no erythema or drainage. She is nontender. ASSESSMENT: Dysphagia status post anterior cervical diskectomy and fusion. PLAN: At this time, she would like to pursue a soft diet. We will hopefully allow her to begin us today. It is my understanding she is scheduled for a swallowing evaluation today. Will await these results. Hopefully, the patient will be discharged home tomorrow.
[2016-06-21 15:12] VITALS: BP 136/76; PULSE 72; TEMP 37; O2SAT 96
[2016-06-21] MEDS: BOOST PLUS VANILLA PO SCH ×2 (18:06)
--- NOTE | 2016-06-21 18:28 | Progress Note ---
Subjective Date of Service: Jun 21, 2016. Subjective Pt evaluation today including: conversation w/ patient, physical exam, chart review, lab review, review of studies (video swallow), conversation w/ employment consultant (speech therapy), review of inpatient medication list Pain: neck - minimal PO Intake: tolerating clears fair at best Voiding: no voiding problems no issues overnight denies cough, sob, perez still with difficulty swallowing today Problem List Medical Problems: (1) Hypokalemia Status: Acute (2) Neck pain Status: Acute (3) New onset atrial fibrillation Status: Acute Review of Systems Constitutional: No fever Cardiac: No chest pain, No orthopnea Abdomen: No pain Objective Vital Signs Date Time Temp Pulse Resp B/P Pulse Ox O2 Delivery O2 Flow Rate FiO2 06/21/16 16:00 Room Air 06/21/16 15:12 37.0 72 18 136/76 96 Room Air 06/21/16 12:00 Room Air 06/21/16 11:35 36.7 60 18 157/81 96 Room Air 06/21/16 08:00 Room Air 06/21/16 07:21 36.6 63 18 155/85 97 Room Air 06/21/16 05:06 36.7 60 18 163/84 95 Room Air 06/21/16 04:00 Room Air 06/21/16 00:05 Room Air 06/20/16 23:49 36.5 66 20 166/87 99 Room Air 06/20/16 20:05 Room Air 06/20/16 19:24 36.9 67 20 152/84 93 Room Air Physical Exam General Appearance: no apparent distress ENT: pharynx normal, + pertinent finding (no trismus, hoarse voice, or stridor) Neck: no JVD, + pertinent finding (anterior neck swelling about the same as yesterday; incision right anterior neck clean; no goiter ) Respiratory/Chest: lungs clear, no respiratory distress, no accessory muscle use Cardiovascular: regular rate, rhythm, no gallop, no murmur Abdomen: normal bowel sounds, non tender, soft, no organomegaly Extremities: no pedal edema Neurologic/Psychiatric: alert, oriented x 3 Laboratory Results Last 24 Hours Test 06/21/16 07:17 Sodium Level 144 mmol/L Potassium Level 4.0 mmol/L Chloride Level 106 mmol/L Carbon Dioxide Level 28 mmol/L Anion Gap 10.0 mmol/L Blood Urea Nitrogen 14 mg/dl Creatinine 0.56 mg/dl Est Creatinine Clear Calc Drug Dose 78.8 ml/min Estimated GFR () 106.5 Estimated GFR (Non- 91.9 BUN/Creatinine Ratio 25.4 Random Glucose 130 mg/dl Calcium Level 8.4 mg/dl Assessment and Plan 75yo female: 1. dysphagia - 2nd to cervical spine swelling in the setting of recent c-spine surgery as well as reported hematoma. Remains on decadron. Wean to q8h dosing. Speech therapy consult appreciated; video swallow results noted. Diet advanced by speech. Nutrition consult to help patient understand how many calories/day she needs, etc Add mvi. 2. recent cervical spine surgery by Dr. Beverly - no surgical intervention needed at this time for swelling. appreciate Dr. Beverly continuing to follow 3. recent paroxysmal a. fib - resolved, remains in NSR. No anticoagulation for at least 1 month according to orthopedics. Defer on beta lolita for now due to normal BP/HR 4. DVT proph - SCDs. 5. FEN - continue fluids but reduce to 50cc/hr, repeat BMP in am. progressing Continued [facility] stay due to: inadequate po fluid intake, inadequate oral pain control, multiple IV medications needed Discharge planning: home
[2016-06-21] MEDS ORDERED: CEROVITE ADV FORMULA TAB PO ONE (19:00)
[2016-06-21 19:38] VITALS: BP 130/78; PULSE 76; TEMP 36.6; O2SAT 94
[2016-06-22] VITALS (7 sets, daily range): BP systolic 132–172; BP diastolic 80–91; PULSE 59–68; TEMP 36.6–36.9; O2SAT 90–96
[2016-06-22] MEDS: SODIUM CHLOR 0.45% + 20MEQ KCL 1,000 ML IV SCH (01:56)
[2016-06-22] MEDS: DEXAMETHASONE INJ 4 MG in SYRINGE 0 ML IV SCH (06:09)
[2016-06-22 07:10] LABS: BUN/CREATININE RATIO 27.3 (10-20); CALCIUM 8.3 mg/dl (8.5-10.1); CREATININE 0.59 mg/dl (0.60-1.20); POTASSIUM 3.6 mmol/L (3.5-5.1)
[2016-06-22 07:11] LABS: PHOSPHORUS 3.3 mg/dl (2.5-4.9)
[2016-06-22] MEDS: BOOST PLUS VANILLA PO SCH ×6 (08:00→17:58)
[2016-06-22] MEDS: CEROVITE ADV FORMULA TAB PO SCH (08:35)
[2016-06-22] MEDS: POLYETHYLENE (MIRALAX) 17 GM PACK PO SCH ×2 (08:35→20:35)
[2016-06-22] MEDS: ASPIRIN 81 MG ECTAB PO SCH (08:36)
--- NOTE | 2016-06-22 08:47 | PROGRESS NOTE ---
DATE: 06/22/2016 Again, swelling is making modest but steady improvements. She has no arm pain. On exam, the incision is clean and dry, swelling decreasing slowly. ASSESSMENT: Status post anterior cervical discectomy and fusion with dysphagia. PLAN: At this time, I anticipate she will be able to discharge home either this afternoon or tomorrow pending swallowing eval and dietary recommendations.
[2016-06-22] MEDS ORDERED: FLUCONAZOLE 50 MG TAB PO ONE (10:00)
--- NOTE | 2016-06-22 10:16 | Progress Note ---
Subjective Date of Service: Jun 22, 2016. (Laura Gan PA-C) Subjective Pt evaluation today including: conversation w/ patient, physical exam, chart review, lab review, review of studies, review of inpatient medication list Patient seen and evaluated. Pt reports mildly dry and irritated mouth. Reports that she has had issues with steroids and vulvovaginal candidiasis. Oropharynx mildly erythematous with scattered white patches. Reports she can swallow Diflucan pill. She feels that she is slowly making improvements in swallowing. Has talked with telegraph office telephone clerk who has given her recommendations. Tolerating a full liquid diet and Boost supplement. Reports she is unable to swallow multivitamin. (Laura Gan PA-C) Problem List Medical Problems: (1) Hypokalemia Status: Acute (2) Neck pain Status: Acute (3) New onset atrial fibrillation Status: Acute (Laura Gan PA-C) Review of Systems Constitutional: No chills, No fever ENT: + sore throat (irritative), + trouble swallowing Respiratory: + cough, No shortness of breath Cardiac: No chest pain, No palpitations Abdomen: No constipation, No diarrhea, No nausea, No pain, No vomiting Musculoskeletal: No muscle pain, No swelling Female : No dysuria Neurologic: No numbness/tingling, No vertigo Endo: No fatigue (Laura Gan PA-C) Medications Current Inpatient Medications Medications (Trade) Dose Ordered Sig/Uche Route Start Time Stop Time Status Last Admin Dose Admin Acetaminophen (Tylenol Tab) 650 mg Q4H PRN PO 06/18/16 11:00 07/18/16 10:59 Al Hydrox/Mg Hydrox/Simethicone (Maalox Max Susp) 15 ml Q4H PRN PO 06/18/16 11:00 07/18/16 10:59 Magnesium Hydroxide (Milk Of Magnesia Susp) 30 ml Q12H PRN PO 06/18/16 11:00 07/18/16 10:59 Ondansetron HCl (Zofran Inj) 4 mg Q6H PRN IV 06/18/16 11:00 07/18/16 10:59 Future hold Aspirin (Ecotrin Tab) 81 mg QAM PO 06/19/16 09:00 07/19/16 08:59 06/22/16 08:36 81 MG Miscellaneous (Iv Fluids Completed) 1 ea PRN PRN N/A 06/18/16 11:15 06/18/17 11:14 Hydromorphone HCl 0.5 mg 0.5 mg Q4 PRN IV 06/18/16 14:15 07/02/16 14:14 Potassium Chloride/Sodium Chloride (1/2 Nss + 20meq KCl 1000ml) 1,000 ml @ 50 mls/hr Q20H IV 06/18/16 15:00 07/18/16 14:59 06/22/16 01:56 50 MLS/HR Polyethylene (Miralax Powder Packet) 17 gm BID PO 06/18/16 21:00 07/18/16 20:59 06/20/16 20:20 17 GM Sodium Chloride ([place] Nasal Sylva) 1 sprays PRN PRN NA 06/20/16 20:45 07/20/16 20:44 06/20/16 21:16 1 SPRAYS Enteral Nutritional Formula (Boost Plus Vanilla) 1 can TIDM PO 06/21/16 17:00 07/21/16 16:59 06/22/16 08:00 1 CAN Multivitamins/ Minerals (Multivitamin W/ Minerals Tab) 1 tab QAM PO 06/22/16 09:00 07/22/16 08:59 (Laura Gan PA-C) Objective Vital Signs Date Time Temp Pulse Resp B/P Pulse Ox O2 Delivery O2 Flow Rate FiO2 06/22/16 07:15 36.6 59 18 169/88 96 Room Air 06/22/16 04:00 Room Air 06/22/16 00:22 36.8 60 18 154/80 90 Room Air 06/22/16 00:05 Room Air 06/21/16 20:05 Room Air 06/21/16 19:38 36.6 76 16 130/78 94 Room Air 06/21/16 16:00 Room Air 06/21/16 15:12 37.0 72 18 136/76 96 Room Air 06/21/16 12:00 Room Air 06/21/16 11:35 36.7 60 18 157/81 96 Room Air (Laura Gan PA-C) Physical Exam General Appearance: WD/WN, no apparent distress, + pertinent finding (cervical collar in place; ambulating hallways with steady gait) Eyes: sclerae normal ENT: hearing grossly normal, + pharyngeal erythema (mild), + pertinent finding (scattered small white patches in oropharynx ) Respiratory/Chest: lungs clear, normal breath sounds, no respiratory distress, no accessory muscle use Cardiovascular: regular rate, rhythm, no gallop, no murmur Abdomen: normal bowel sounds, non tender, soft Extremities: normal inspection, no pedal edema, no calf tenderness Neurologic/Psychiatric: alert, oriented x 3 Skin: normal color, warm/dry (Laura Gan, CRC) Laboratory Results Last 24 Hours Test 06/22/16 06:00 Sodium Level 143 mmol/L Potassium Level 3.6 mmol/L Chloride Level 106 mmol/L Carbon Dioxide Level 30 mmol/L Anion Gap 7.0 mmol/L Blood Urea Nitrogen 16 mg/dl Creatinine 0.59 mg/dl Est Creatinine Clear Calc Drug Dose 75.3 ml/min Estimated GFR () 104.6 Estimated GFR (Non- 90.3 BUN/Creatinine Ratio 27.3 Random Glucose 118 mg/dl Calcium Level 8.3 mg/dl Phosphorus Level 3.3 mg/dl (Laura Gan, PA-C) Assessment and Plan 75yo female: 1. dysphagia - 2nd to cervical spine swelling in the setting of recent c-spine surgery as well as reported hematoma. - Decadron 4 mg po Q12H - Speech therapy consult appreciated; video swallow results noted. - Diet advanced by speech. - Nutrition consult to help patient understand how many calories/day she needs, etc - Add mvi - patient unable to swallow - may benefit from gummy vitamin as outpatient 2. recent cervical spine surgery by Dr. Beverly - no surgical intervention needed at this time for swelling. - appreciate Dr. Beverly continuing to follow 3. recent paroxysmal a. fib - resolved, remains in NSR. - No anticoagulation for at least 1 month according to orthopedics. - Defer on beta lolita for now due to normal BP/HR - BPs are variable but HR average 60s-50s -- Risk of bradycardia in setting of beta lolita 4. Oral Thrush: - Patient reports frequent vulvovaginal yeast infections with steroid use - reports she will be able to swallow Diflucan - Diflucan 150 mg x 1 dose for prevention of vulvovaginal infection - Nystatin swish and swallow QID 5. DVT proph - SCDs. 6. FEN - will D/C fluids at this time 7. Disposition - Possible D/C tomorrow - will convert to po Decadron and observe tolerance today Continued [facility] stay due to: inadequate po fluid intake, inadequate oral pain control, multiple IV medications needed Discharge planning: home (Laura Gan, PASamuelC) Attending Attestation: Pt seen/examined, chart reviewed, and care plan d/w OCTAVIO Gan. I agree w/ the delgado components of her documentation. Swallowing modestly better today Now having mouth/gum pain/discomfort. tele with no a. fib VSS, BPs high/labile however gen - nad mouth - MMM but now w/ thrush plaques neck - less swelling anterior neck heart - RRR, s1, s2 lungs - CTA b/l abd - soft skin - incision right neck clean ext - no edema; strength 5/5 x 4 exts BMP wnl A/P: 1. thrush - nystatin + diflucan 2. dysphagia 2nd to neck swelling in setting of recent cervical surgery - wean steroids; slowly improving 3. HTN - resume dyazide check labs am if oral intake is sufficient overnight can d/c home tomorrow Dulce CARDONA MD (Kal Cardona MD)
[2016-06-22] MEDS: TRIAMTERENE/HCTZ 37.5/25MG CAP PO SCH (12:15)
[2016-06-22] MEDS ORDERED: DEXAMETHASONE 4 MG TAB PO ONE ×2 (13:51→14:00)
[2016-06-22] MEDS: NYSTATIN SUSP 500,000 U/5 ML UDC PO SCH ×2 (17:47→20:36)
[2016-06-22] MEDS: DEXAMETHASONE 4 MG TAB PO SCH (20:34)
[2016-06-23 00:26] VITALS: BP 156/73; PULSE 70; TEMP 36.9; O2SAT 95
[2016-06-23 05:10] VITALS: BP 151/84; PULSE 66; TEMP 36.5; O2SAT 95
[2016-06-23 06:42] LABS: BUN/CREATININE RATIO 27.7 (10-20); CALCIUM 8.4 mg/dl (8.5-10.1); CREATININE 0.6 mg/dl (0.60-1.20); MAGNESIUM 2.2 mg/dl (1.8-2.4); POTASSIUM 3.8 mmol/L (3.5-5.1)
[2016-06-23 07:40] VITALS: BP 158/85; PULSE 63; TEMP 36.5; O2SAT 96
[2016-06-23] MEDS: ASPIRIN 81 MG ECTAB PO SCH (07:40)
[2016-06-23] MEDS: TRIAMTERENE/HCTZ 37.5/25MG CAP PO SCH (07:41)
[2016-06-23] MEDS: DEXAMETHASONE 4 MG TAB PO SCH (07:41)
[2016-06-23] MEDS: CEROVITE ADV FORMULA TAB PO SCH (07:41)
[2016-06-23] MEDS: NYSTATIN SUSP 500,000 U/5 ML UDC PO SCH (07:41)
[2016-06-23] MEDS: POLYETHYLENE (MIRALAX) 17 GM PACK PO SCH (07:41)
[2016-06-23] MEDS: BOOST PLUS VANILLA PO SCH ×2 (09:16)
--- NOTE | 2016-06-23 09:48 | PROGRESS NOTE ---
DATE: 06/23/2016 Overall, she is improving, swallowing is getting better incrementally on a daily basis. She continues to deny any hoarseness, shortness of breath, or arm symptoms. PHYSICAL EXAMINATION: Incision is intact and swelling is decreasing. There is no erythema or drainage. ASSESSMENT: Status post anterior cervical discectomy and fusion. PLAN: At this time, anticipate home today. We will see her back in the office next week, update x-rays and review her status.
[2016-06-23] MEDS ORDERED: NYSS5 PO (11:39)
[2016-06-23] MEDS ORDERED: DXM4 PO (11:39)
--- NOTE | 2016-06-23 11:48 | Discharge Instructions ---
Discharge Instructions Admission Reason for Admission: Dysphagia (Laura Gan PA-C) Discharge Discharge Diagnosis / Problem: Dysphagia (Laura Gan PA-C) Discharge Goals Goal(s): Decrease discomfort, Learn about illness, Therapeutic intervention (Laura Gan PA-C) Activity Recommendations Activity Limitations: as noted below Lifting Limitations: gradually increase as tolerated Exercise/Sports Limitations: gradually increase as tolerated May Resume Sexual Activity: when tolerated Shower/Bathe: no limitations . (Laura Gan PA-C) Instructions / Follow-Up Instructions / Follow-Up Difficulty Swallowing: - Please follow the diet recommendations that include easy to swallow foods that are liquid or grounded in nature. Foods that are wet/slippery will be easier to swallow. - Implementing protein drinks will help fulfill nutrition needs while being easy to swallow until your swallowing improves. - You will be given a prescription for Decadron 4 mg to take once a day for three more days starting on 06/24/16. This is the steroid. - Keep track of your weight and how much you are eating to make sure you are staying nourished. - You will need a follow-up video swallowing study in 3-4 weeks or sooner if you noticed drastic worsening of swallowing ability New Onset Atrial Fibrillation: - During this admission your heart rhythm was noted in a rhythm called atrial fibrillation. It appears that you have returned to a normal regular rhythm at this time. - When your heart rhythm does this we call it Paroxysmal Atrial Fibrillation. This should be followed by your family doctor. - When a person has atrial fibrillation a blood thinner is started. Due to your surgery we will not initiate a blood thinner at this time. - We would recommend that you get clearance from your surgeon, Dr. Beverly before starting a blood thinner - at this point I would suspect no blood thinner for at least a month. Oral Thrush: - You will be sent home with a prescription for Nystatin swish that can be used to help with yeast infection of the mouth - You will also go home with Diflucan 150 mg one dose to take if needed to prevent vaginal yeast infection Follow-Up: - Please see Dr. Beverly next week for follow-up assessment - Please follow-up with your family doctor in 1-2 weeks -- Family doctor can help set up a video swallow in 3-4 weeks Reasons to Return: - Please return if symptoms worsen in regards to swallowing (Laura Gan PA-C) Current Hospital Diet Patient's current hospital diet: Regular Diet (Laura Gan PA-C) Discharge Diet Recommended Diet: Full Liquid Diet Diet Texture: Mechanical Soft (ground) (Laura Gan PA-C) Pending Studies Studies pending at discharge: no (Laura Gan PA-C) Laboratory Results Lipid Panel Test 04/05/16 09:05 Range/Units Triglycerides Level 100 0-150 mg/dl Cholesterol Level 140 0-200 mg/dl HDL Cholesterol 50 mg/dl Cholesterol/HDL Ratio 2.8 LDL Cholesterol, Calculated 70 mg/dl (Laura Gan PA-C) Medical Emergencies . Who to Call and When: Medical Emergencies: If at any time you feel your situation is an emergency, please call 911 immediately. . (Laura Gan PA-C) Non-Emergent Contact Non-Emergency issues call your: Primary Care Provider Call Non-Emergent contact if: you have any medication questions . (Laura Gan PA-C) . "Provider Documentation" section prepared by Laura Gan. (Laura Gan PA-C) Attending Attestation: I was present with OCTAVIO Gan on the day of the patient's discharge and I agree with her discharge instructions as outlined. Kal Cardona MD (Kal Cardona MD) VTE Core Measure Inpt VTE Proph given/why not?: Ryder Corley, SCD's (Laura Gan PA-C)
[2016-06-23] MEDS ORDERED: FLUC150T PO (13:13)
--- NOTE | 2016-06-23 16:27 | Discharge Summary ---
Discharge Summary Admission Date: Jun 18, 2016 at 20:26 Discharge Date: Jun 23, 2016 Discharge Disposition: Home Principal Diagnosis: Dysphagia 2/2 Edema S/P Anterior Cervical Discectomy, Corpectomy, & Fusion Problems/Secondary Diagnoses: 1. Paroxysmal Atrial Fibrillation 2. Oral Thrush Immunizations: Have You Had Influenza Vaccine: No History of Tetanus Vaccine?: Yes Tetanus Immunization Date: Jan 21, 2007 History of Pneumococcal: Yes Pneumococcal Date: Feb 22, 2008 History of Hepatitis B Vaccine: Yes Hepatitis Immunization Date: October 21, 2000 Consultations: 1. Orthopedic Surgery (Laura Gan, PASamuelC) Medication Reconciliation New Medications: Fluconazole (Diflucan) 150 Mg Tab 150 MG PO DAILY, #1 TAB Take one (150 mg) pill if needed for symptoms of possible vaginal yeast infection. Dexamethasone (Dexamethasone) 4 Mg Tab 4 MG PO DAILY for 4 Days, #4 TAB Start tomorrow 06/24/2016 Nystatin (Nystatin) 5 Ml Susp 5 ML PO QID for 5 Days Continued Medications: Acetaminophen (Tylenol Arthritis Ext Rel) 650 Mg Cplt 650 MG PO Q8H PRN for Pain, CAP Aspirin (Aspirin Ec) 81 Mg Tab 81 MG PO QAM Estradiol (Estradiol) 0.5 Mg Tab 1 TAB PO DAILY, TAB Ovmdaitgryo-Sqhnvhhhodi-Xso C- (Glucosamine Chondroitin) 1 Tab Tab 1 TAB PO QAM PATIENT MED LIST READS : TRIDE FLEX, 1500MG, GLUCOSAMINE, 800MG, CHONDROITON MSM 750MG Multiple Vitamins W/ Minerals (Centrum Silver Adult 50+) 1 Tab Tab 1 TAB PO QAM Oxycodone HCl (Oxycodone HCl) 5 Mg Tab 5-10 MG PO Q4H PRN for moderate-severe pain for 30 Days, #60 TAB Simvastatin (Zocor) 40 Mg Tab 40 MG PO QPM, 0 Refills Triamterene/Hctz (Dyazide 37.5MG/25MG *) Cap 1 CAP PO QAM, 0 Refills Discharge Exam Review of Systems: Constitutional: No chills, No fever Eyes: No worsening of vision ENT: + trouble swallowing (slowly improving), No nasal symptoms, No sore throat Respiratory: No cough, No shortness of breath Cardiovascular: No chest pain Abdomen: No constipation, No diarrhea, No nausea, No pain, No vomiting Musculoskeletal: No calf pain, No swelling Genitourinary - Female: No dysuria Neurologic: No vertigo, No weakness Endocrine: No fatigue Integumentary: No rash Physical Exam: General Appearance: WD/WN, no apparent distress, + thin Eyes: sclerae normal ENT: hearing grossly normal Neck: trachea midline, + pertinent finding (C-Collar in place) Respiratory/Chest: lungs clear, normal breath sounds, no respiratory distress, no accessory muscle use Cardiovascular: regular rate, rhythm, no gallop, no murmur Abdomen / GI: normal bowel sounds, non tender, soft Extremities: no calf tenderness, no pedal edema Neurologic/Psychiatric: alert, oriented x 3 Skin: normal color, warm/dry (Laura Gan, PASamuelC) Hospital Course ADMISSION: The patient is a 75-year-old female who was just discharged 2 days ago after a neck surgery, it was like a C3-C4 anterior cervical discectomy and fusion and C5 corpectomy and allograft. She noted she was generally feeling lousy, but feels worse now. She has neck pain. She has abdominal pain. She has constant nausea. She cannot eat or or drink and she feels like she is getting dehydrated. She notes she has not had a bowel movement at least in the last couple of days. She has left lower and a little bit diffuse abdominal pain which she relates feels pretty consistent with constipation. She does not have any shortness of breath. She notes the lower abdominal and neck symptoms are about equal. HOSPITAL COURSE: 1. Dysphagia 2/2 Cervical Swelling S/P C-Spine Surgery: - IV Steroids initiated with gradual taper to po medication -- D/C'd with Decadron 4 mg daily x 4 more days - Speech therapy consult appreciated; video swallow completed -- Video swallow without aspiration noted but impaired swallowing mechanism with diminished epiglottic inversion and laryngeal elevation -- INTERNAL REVENUE SERVICE AGENT recommendations - advanced diet to propeller mechanic ground with slippery/ loose solids -- Face Burler - supplied recommended foods that will supply adequate caloric intake that will be easy to swallow as patient recovers -- Recommended protein drink/supplement in addition to supply appropriate nutrition -- Recommend patient monitor intake and weight - Advised to follow-up with Dr. Beverly next week - REPEAT VIDEO SWALLOW IN 3-4 WEEKS - PATIENT MAY NEED ASSISTANCE IN SETTING THIS UP 2. Paroxysmal Atrial Fibrillation: New vs Recurrent - Patient does report H/O rapid heart rates that have resolved with Valsalva maneuvers however unsure of actual diagnosis - In setting of recent surgery will defer anticoagulation at this time for approx. 1 month. Would recommend approval from Dr. Beverly before implementation of anticoagulation - Consideration for beta lolita was discussed however patient with adequate BPs and rate controlled. Some HR readings in 50-60s and therefore risk of bradycardia. - May need considered as outpatient with continued monitoring 3. Oral Thrush - Noted mildly sore throat with mild erythema and scattered white patches that have resolved currently - D/C'd with Nystatin swish QID to use x 5 days - Received Diflucan 150 mg x 1 dose in hospital - D/C'd with Diflucan 150 mg x 1 dose to use as prophylaxis for vaginal yeast infection as patient reports is common for her with steroids. 4. Disposition - Patient has tolerated advancement of diet to include soft foods that are slippery - She remains in C-collar and advised to follow-up with Dr. Beverly next week - Advised to follow-up with PCP in 1-2 weeks - Patient is alert, vitals stable, voices no complaints currently, and is optimal for D/C home with outpatient follow-up Total Time Spent: Greater than 30 minutes This includes examination of the patient, discharge planning, medication reconciliation, and communication with other providers. (Laura Gan, PA-C) Attending Attestation: Pt seen and examined, discharge plan d/w OCTAVIO Farrell. I agree with the delgado components of her discharge summary. 75yo female with recent cervical spine surgery by Dr. Jalil Beverly who presented with severe dysphagia in the post-op setting. She was started on IV steroids and IVF at presentation. After admission she underwent speech therapy evaluation who recommended video swallow examination. This did NOT show any aspiration. She was gradually advanced from clear liquids to mechanical soft. Fortunately her intake was adequate enough to stay hydrated. Her steroids were tapered while here and she will complete a course of decadron at home. Her hospitalization was complicated by thrush due to the steroid use as well as atrial fibrillation. The latter resolved without intervention. Her CHADS score is a 2 and thus anticoagulation is recommended by Dr. Beverly recommended waiting 1 month to initiate such. Discharge exam - gen - NAD, a/o x 3 mouth - resolving thrush, no posterior pharyngeal abnormalities neck - resolving swelling of the anterior neck; incision right anterior neck clean and free of cellulitis heart - RRR, s1, s2, no murmur lungs - CTA b/l abd - soft, NT, ND, BS+ ext - no edema neuro - strength 5/5 x 4 exts, no facial droop Kal Cardona MD (Kal Cardona MD) Discharge Instructions Please refer to the electronic Patient Visit Report (Discharge Instructions) for additional information. (Laura Gan, PA-C) Additional Copies To Andrae Beverly D.O.; Vasu Kaur M.D.
[2017-06-02] MEDS ORDERED: CLB/200 PO (08:18)
== END 2016-06-23 14:42 | disposition home or self-care (01) | DRG 392 ==
LOC: ENRESERVTM → ENRESERVDT → C.EDB 05:51 → C.MED 10:57 → EDBEDREQ 11:29 → OBSVTOIN 20:26
PROVIDERS: ADMIT Family Medicine; ATTEND Internal Medicine
DX: R13.10 Dysphagia, unspecified (principal); B37.0 Candidal stomatitis; I48.0 Paroxysmal atrial fibrillation; E78.5 Hyperlipidemia, unspecified; I08.1 Rheumatic disorders of both mitral and tricuspid valves; E87.6 Hypokalemia; M54.2 Cervicalgia; I10 Essential (primary) hypertension; M19.90 Unspecified osteoarthritis, unspecified site; M51.36 Other intervertebral disc degeneration, lumbar region

== ENCOUNTER → 2016-10-14 | Outpatient (CLI) | payer OTHER ==
[~2016-10-14] MED LIST changes: -CALC500C70 PO; +DXM4 PO; +NYSS5 PO
--- NOTE | 2016-10-14 16:53 | MAMMOGRAPHY REPORT ---
BILATERAL DIGITAL SCREENING MAMMOGRAM WITH CAD: 10/14/2016 CLINICAL HISTORY: Routine screening. Patient has no complaints. TECHNIQUE: Current study was also evaluated with a Computer Aided Detection (CAD) system. Bilatera l CC and MLO views were obtained. COMPARISON: Comparison is made to exams dated: 10/09/2015 mammogram, 10/07/2014 mammogram, 10/04/2013 mammogram, 10/03/2012 mammogram, 09/27/2011 mammogram, and 09/23/2010 mammogram - [facility] enter. BREAST COMPOSITION: The tissue of both breasts is almost entirely fatty. FINDINGS: No suspicious masses, calcifications, or areas of architectural distortion are noted in e ither breast. There has been no significant interval change compared to prior exams. IMPRESSION: ACR BI-RADS CATEGORY 1: NEGATIVE There is no mammographic evidence of malignancy. A 1 year screening mammogram is recommended. The p atient will receive written notification of the results. Approximately 10% of breast cancers are not detected with mammography. A negative mammographic repor t should not delay biopsy if a clinically suggestive mass is present. Nori Kinney M.D. /:10/14/2016 15:23:47 Healthcare Facility Administrator: Dena Beaver, [facility] letter sent: Normal 1/2 BI-RADS Code: ACR BI-RADS Category 1: Negative
== END | disposition home or self-care (01) ==
LOC: C.MAMM 09:13
PROVIDERS: ATTEND Obstetrics & Gynecology
DX: Z12.31 Encounter for screening mammogram for malignant neoplasm of breast (principal)

== ENCOUNTER → 2017-03-21 | Outpatient (CLI) | payer OTHER | END | disposition home or self-care (01) | LOC: C.PAPS 14:12 | PROVIDERS: ATTEND Obstetrics & Gynecology | DX: Z01.419 Encounter for gynecological examination (general) (routine) without abnormal findings (principal) ==

== ENCOUNTER → 2017-04-28 | Outpatient (CLI) | payer OTHER ==
--- NOTE | 2017-04-28 14:43 | DIAGNOSTIC IMAGING REPORT ---
VIDEO SWALLOW STUDY CLINICAL HISTORY: Dysphagia. COMPARISON STUDY: Video swallow study dated 06/21/2016. Fluoroscopy time: 1.6 minutes. FINDINGS: Fluoroscopic guidance was provided to the Department of Speech Pathology in performing a video swallow study. The patient consumed barium-impregnated cracker with paste, pudding, nectar thick liquid, and thin barium while the swallowing mechanism was observed in real-time. No penetration or aspiration was seen with any of the sampled textures. There was vallecular retention noted with disorder of swallowing. Cervical fusion hardware is noted. IMPRESSION: Disordered swallowing with no aspiration seen during the examination. See dedicated speech pathology report for detailed findings and recommendations. Dictated: 04/28/2017 2:24 PM Transcribed: 04/28/2017 2:43 PM ADA_Stepan Electronically signed by: Carlos Alberto Urbina M.D. 04/28/2017 2:46 PM Dictated Date/Time: 04/28/2017 2:24 PM
--- NOTE | 2017-04-29 14:40 | SWALLOWING EVALUATION ---
REFERRING SPEECH PATHOLOGIST: n/a HISTORY: This 76 year-old female was referred for a VFSS at [facility] in order to address c/o continued dysphagia and globus sensation. The patient has a PMH significant for C3-4 anterior approach cervical discectomy and fusion and C5 corpectomy and allograft in May 2016. The next month, June 2016, she was admitted with dysphagia and had a VFSS completed that resulted in finding moderate-severe pharyngo-esophageal dysphagia d/t minimal PES opening. Recommendations were given for the patient to have a slippery mechanical soft diet and to have the VFSS repeated in 3-4 weeks to determine if any improvements have occurred as she was healing from the surgery. Currently the patient's diet level is regular as tolerated and she reports no significant change in the dysphagia since June. Other PMH: hyperlipidemia, A-fib, osteoarthritis, hypertension and heart disease. PROCEDURE: The patient was seen in the Radiology Department of [facility] for the VFSS. Cursory examination of the oral cavity revealed adequate dentition. Movement of the articulators was WNL. The patient was seated on a stool and was viewed in both the Anterior-Posterior (A-P) and Lateral planes. Volitional phonation exercises completed in the A-P plane revealed seemingly normal vocal quality, but unable to see vocal folds due to presence of cervical hardware. In the lateral plane, the patient was given the following boluses: 1 tsp. thin liquid barium x 2, single swallow thin liquid barium self-presented from a cup, 1 tsp. nectar-thick liquid barium, single swallow nectar-thick liquid barium self-presented from a cup, 1 tsp. barium pudding, and 1 club cracker with barium pudding. The patient was then repositioned into the A-P plane and a scan of the esophagus was completed. No boluses given. RESULTS: Oral Stage: Labial seal, lingual control during oral bolus hold, mastication, bolus transport, and oral clearance were all WNL. Pharyngeal swallow initiated when the bolus was in the valleculae. Oral stage of swallow WNL. Pharyngeal Stage: Soft palate elevation, laryngeal elevation, anterior hyoid excursion, epiglottic inversion, and laryngeal vestibular closure were all WNL. Pharyngeal stripping wave diminished. Minimal distention and duration of PES opening. Tongue base retraction was adequate. There was vallecular retention of ALL boluses due to minimal PES opening. All boluses had to be swallowed in piecemeal fashion in order to clear the PES. No aspiration during the study, but there was severely impaired PES functioning. Esophageal Stage: No bolus retention noted during esophageal scan. SUMMARY/RECOMMENDATIONS: This patient presents with moderate to severe (and unchanged) pharyngo-esophageal dysphagia. The following is recommended: 1. Slippery diet as tolerated. Choose foods that are loose, moist, slippery; avoid foods that are doughy, thick, dry, pasty; use condiments liberally to moisten foods 2. Compensatory Strategies: small bites/sips, alternate solids and liquids frequently A summary of the results and recommendations was discussed with the patient immediately following the study. She verbalized understanding and is anticipating f/u with the referring physician. Thank you for referral of this patient. Please contact me at if any additional information is needed.
== END | disposition home or self-care (01) ==
LOC: C.RAD 12:49
PROVIDERS: ATTEND Internal Medicine
DX: R13.10 Dysphagia, unspecified (principal)

== ENCOUNTER → 2017-06-02 | Day surgery (SDC) | payer OTHER ==
[~2017-06-02] VITALS: Ht 162.6 cm; Wt 59.0 kg
[~2017-06-02] MED LIST changes: +ACETAMINOPHEN 325 MG TAB PO PRN; +BACITRACIN OINT 0.9 GM PKT ONE; +CEFAZOLIN SOD 1000MG/5 ML IV PUSH IV ONE; +CLB/200 PO; +KETOROLAC TROMETHAMINE 10 MG TAB PO PRN; +LIDOCAINE HCL 1% 20 ML VIAL ONE
[2017-06-02 08:20] VITALS: BP 147/71; PULSE 70; TEMP 36.4; O2SAT 98; Ht 162.6 cm; Wt 59.0 kg
--- NOTE | 2017-06-02 08:48 | History & Physical Bridge Note ---
H&P Re-Evaluation Bridge Note: I have examined the patient, reviewed the History & Physical and in the interval since the performance of the History & Physical I have noted the following changes of clinical significance: No changes noted. I reviewed the indications, procedure, risks and alternatives with the patient, answered all questions. Consent obtained. Patient understands and agrees to the procedure. I also reviewed the risks and use of sedation, patient understands and consent obtained.
--- NOTE | 2017-06-02 08:51 | Procedure Note ---
Pre-Mod Sedation Assessment General Date of Moderate Sedation: Jun 02, 2017. Vital Signs: Vital Signs Past 12 Hours Date Time Temp Pulse Resp B/P (MAP) Pulse Ox O2 Delivery O2 Flow Rate FiO2 06/02/17 08:20 36.4 70 16 147/71 (96) 98 Room Air Review Cardiovascular: regular rate, rhythm Abdomen: normal bowel sounds Lungs: lungs clear Airway Class: II Pre-Sedation Airway Assessment Oral Cavity: WNL Able to Visualize Vocal Cords: Yes Short Thick Neck: No Hx of Sleep Apnea: No Smoking Status: Never Smoker Mallampati Classification: Class II ASA Classification: Class II Procedure Planning Contraindications-for Mod Sed: None Yes Notes The planned sedation has been discussed with the patient and consent obtained. I have identified the patient, determined the appropriateness of sedation and have assessed the patient immediately prior to the procedure. All medicine(s) and interventions are by my order.
--- NOTE | 2017-06-02 09:20 | [facility] Operative Report ---
Operative Report Operative Date Jun 02, 2017. Pre-Operative Diagnosis Paroxysmal atrial fibrillation Post-Operative Diagnosis same Procedure(s) Performed Loop recorder implantation Surgeon Dr. Bradley Electric Sealing Machine Operator Surgeon(s) none Estimated Blood Loss 2 cc Findings Good lead position, good measurements Specimens None Anesthesia local, no sedation Complication(s) None Disposition same day surgery Description of Procedure After obtaining informed consent for the procedure, the patient was brought to the laboratory having had nothing by mouth after midnight. The patient was prepped and draped in the standard sterile manner for a loop recorder implantation. An area at the fourth left intercostal space and 1 cm left of the left sternal border was infiltrated with 1% lidocaine local anesthetic and a 0.5 cm incision was made through the skin. Using the loop recorder insertion tool the loop recorder was inserted through the incision at a 45 downward and leftward angle. The incision was closed with a subcutaneous continuous closure of 4-0 Vicryl followed by a running subcuticular skin closure of 4-0 Vicryl. Bacitracin ointment was placed on the incision. A dressing was applied. I attest to the content of the Intraoperative Record and any orders documented therein. Any exceptions are noted below.
--- NOTE | 2017-06-02 09:25 | Discharge Instructions ---
Discharge Instructions Date of Service Jun 02, 2017. Admission Reason for Admission: Palpitations, atrial fibrillation Discharge Discharge Diagnosis / Problem: Loop recorder implantation Discharge Goals Goal(s): Diagnostic testing Activity Recommendations Activity Limitations: resume your previous activity . Instructions / Follow-Up Instructions / Follow-Up ACTIVITY RECOMMENDATIONS: * Do not raise affected arm over head for 2 weeks. SPECIAL CARE INSTRUCTIONS: * If bleeding occurs, apply direct pressure to area for 5 minutes. * Call your doctor if you have severe pain, fever, drainage or bleeding at site. * Keep dressing on and dry. * Keep any scheduled doctor's appointment. * Implant Card - hand held device with website information given. FOLLOW UP VISIT: Keep any scheduled doctor appointments. Current Hospital Diet Patient's current hospital diet: AHA Diet (Heart Healthy) Discharge Diet Recommended Diet: AHA Diet (Heart Healthy) Pending Studies Studies pending at discharge: no Laboratory Results Lipid Panel Test 04/22/17 08:50 Range/Units Triglycerides Level 73 0-150 mg/dl Cholesterol Level 123 0-200 mg/dl HDL Cholesterol 51 mg/dl Cholesterol/HDL Ratio 2.4 LDL Cholesterol, Calculated 57 mg/dl Medical Emergencies . Who to Call and When: Medical Emergencies: If at any time you feel your situation is an emergency, please call 911 immediately. . Non-Emergent Contact Non-Emergency issues call your: Primary Care Provider . . "Provider Documentation" section prepared by Murali Bradley. . VTE Core Measure Inpt VTE Proph given/why not?: Treatment not indicated
[2017-06-02 09:30] VITALS: BP 124/62; PULSE 69; TEMP 36.5; O2SAT 95
[2017-06-02 09:45] VITALS: BP 141/68; PULSE 67; O2SAT 98
== END | disposition home or self-care (01) ==
LOC: C.ACU 07:04
PROVIDERS: ATTEND Internal Medicine Cardiovascular Disease
DX: I48.0 Paroxysmal atrial fibrillation (principal); R00.2 Palpitations; R94.31 Abnormal electrocardiogram [ECG] [EKG]; M19.90 Unspecified osteoarthritis, unspecified site; I65.29 Occlusion and stenosis of unspecified carotid artery; I10 Essential (primary) hypertension; E78.00 Pure hypercholesterolemia, unspecified; E78.5 Hyperlipidemia, unspecified; Z86.19 Personal history of other infectious and parasitic diseases; Z85.828 Personal history of other malignant neoplasm of skin; I73.00 Raynaud's syndrome without gangrene; Z90.49 Acquired absence of other specified parts of digestive tract; Z90.89 Acquired absence of other organs; Z90.710 Acquired absence of both cervix and uterus; Z82.5 Family history of asthma and other chronic lower respiratory diseases; Z82.49 Family history of ischemic heart disease and other diseases of the circulatory system; Z80.0 Family history of malignant neoplasm of digestive organs; Z83.6 Family history of other diseases of the respiratory system; Z79.82 Long term (current) use of aspirin

== ENCOUNTER → 2017-09-16 | Outpatient (CLI) | payer OTHER ==
[~2017-09-16] MED LIST changes: -ACETAMINOPHEN 325 MG TAB PO PRN; -BACITRACIN OINT 0.9 GM PKT ONE; -CEFAZOLIN SOD 1000MG/5 ML IV PUSH IV ONE; +DFL50 PO; -DXM4 PO; +HYDR-5688 PO; -KETOROLAC TROMETHAMINE 10 MG TAB PO PRN; -LIDOCAINE HCL 1% 20 ML VIAL ONE; -NYSS5 PO; +SENN-65 PO; +SENNTAB23 PO; +TRIA37.5 PO
--- NOTE | 2017-09-16 11:54 | DIAGNOSTIC IMAGING REPORT ---
CHEST 2 VIEWS ROUTINE CLINICAL HISTORY: CHEST XRAY preoperative COMPARISON STUDY: 06/18/2016 FINDINGS: The bones soft tissues and hemidiaphragms are normal. The cardiomediastinal silhouette is normal. The lungs are clear. The pulmonary vasculature is normal. IMPRESSION: Negative chest. The above report was generated using voice recognition software. It may contain grammatical, syntax or spelling errors. Electronically signed by: Veto Grant M.D. 09/16/2017 11:53 AM Dictated Date/Time: 09/16/2017 11:52 AM
[2017-09-16 12:52] LABS: BASO ABS # 0.06 K/uL (0-0.2); EOS % 4.4 %; EOS ABS # 0.26 K/uL (0-0.5); HEMATOCRIT 44.1 % (37-47); HEMOGLOBIN 14.7 g/dL (12.0-16.0); IG# 0.01 K/uL (0.00-0.02); LYMPH % 26.3 %; LYMPH ABS # 1.57 K/uL (1.2-3.4); MEAN CELL VOLUME 92.3 fL (80-100); MEAN CORPUSCULAR HEMOGLOBIN 30.8 pg (25-34); MEAN CORPUSCULAR HGB CONC 33.3 g/dl (32-36); MONO % 12.4 %; MONO ABS # 0.74 K/uL (0.11-0.59); NEUT % 55.7 %; NEUT ABS # 3.33 K/uL (1.4-6.5); PLATELET COUNT 280 K/uL (130-400); RED CELL DISTRIBUTION WIDTH CV 14.9 % (11.5-14.5); RED CELL DISTRIBUTION WIDTH SD 50.4 fL (36.4-46.3); WHITE BLOOD COUNT 5.97 K/uL (4.8-10.8)
[2017-09-16 13:30] LABS: BLOOD UREA NITROGEN 20 mg/dl (7-18); CALCIUM 9.2 mg/dl (8.5-10.1); CARBON DIOXIDE 35 mmol/L (21-32); CREATININE 0.69 mg/dl (0.60-1.20); GLUCOSE 86 mg/dl (70-99); POTASSIUM 4.1 mmol/L (3.5-5.1); SODIUM 133 mmol/L (136-145)
== END | disposition home or self-care (01) ==
LOC: C.RAD 10:48
PROVIDERS: ATTEND Orthopaedic Surgery Orthopaedic Surgery of the Spine
DX: Z01.810 Encounter for preprocedural cardiovascular examination (principal); Z01.818 Encounter for other preprocedural examination; Z01.812 Encounter for preprocedural laboratory examination

== ENCOUNTER → 2017-09-20 | Outpatient (CLI) | payer OTHER ==
[~2017-09-20] MED LIST changes: -DYZ PO; -GLUCTAB7 PO
[2017-09-20 16:50] LABS: BLOOD UREA NITROGEN 13 mg/dl (7-18); CALCIUM 9.1 mg/dl (8.5-10.1); CARBON DIOXIDE 32 mmol/L (21-32); CREATININE 0.61 mg/dl (0.60-1.20); GLUCOSE 88 mg/dl (70-99); POTASSIUM 3.9 mmol/L (3.5-5.1); SODIUM 132 mmol/L (136-145)
== END | disposition home or self-care (01) ==
LOC: C.LABBFT 11:34
PROVIDERS: ATTEND Physician Assistant Medical
DX: E87.1 Hypo-osmolality and hyponatremia (principal)

== ENCOUNTER 2017-09-22 11:05 | Inpatient (IN) | payer OTHER ==
[2017-09-19 10:14] VITALS: BMI 22.0
[2017-09-22] VITALS (8 sets, daily range): BP systolic 109–161; BP diastolic 68–84; PULSE 52–89; TEMP 36.4–36.9; O2SAT 97–100; Ht 165.1 cm; Wt 60.0 kg
[~2017-09-22] VITALS: Ht 165.1 cm; Wt 60.0 kg
[~2017-09-22 11:05] MED LIST changes: +ACETAMINOPHEN 500 MG TAB PO SCH; +CEFAZOLIN 1000MG IV PUSH 7.5 ML IV SCH; +CeleBREX 200 MG CAP PO SCH; -DFL50 PO; +GABAPENTIN 300 MG CAP PO SCH; +LACTATED RINGER'S 1000ML 1,000 ML IV SCH; -RXC5 PO
--- NOTE | 2017-09-22 12:44 | History & Physical Bridge Note ---
H&P Re-Evaluation Bridge Note: I have examined the patient, reviewed the History & Physical and in the interval since the performance of the History & Physical I have noted the following changes of clinical significance: No changes noted
--- NOTE | 2017-09-22 12:46 | History and Physical ---
History & Physical Date Sep 22, 2017. Chief Complaint Back and leg pain History of Present Illness The patient is a 76 year old female with complaints of back and leg pain Past Medical/Surgical History Medical Problems: (1) Cervical stenosis of spinal canal (2) Dysphagia (3) HTN (hypertension) Surgical Problems: (1) H/O spinal fusion (2) H/O: hysterectomy (3) History of appendectomy Additional History Hepatic Disease: No Endocrine Disorder: No Kidney Disease: No Hypertension: Yes Heart Disease: No Bleeding Tendencies: No Infectious Diseases: No Allergies Coded Allergies: Amlodipine (Verified Adverse Reaction, Intermediate, ANKLES SWELL UP, ) Home Medications Scheduled Aspirin (Aspirin Ec), 81 MG PO QAM Celecoxib (CeleBREX), 1 CAP PO QAM Estradiol (Estradiol), 1 TAB PO QAM Multiple Vitamins W/ Minerals (Centrum Silver Adult 50+), 1 TAB PO QAM Senna/Docusate Sod (Senokot S), 1 TAB PO PRN Sennosides-Docusate Sodium (Stool Softener), 1 TAB PO TID Simvastatin (Zocor), 40 MG PO QPM Triamterene/Hctz (Dyazide 37.5MG/25MG), 1 TAB PO QAM Scheduled PRN Acetaminophen (Tylenol Arthritis Ext Rel), 650 MG PO Q8H PRN for Pain Hydrocodone/Acetaminophen 5MG/325MG ([place] 5MG/325MG), 1-2 TABLET PO Q6H PRN for N Physical Examination Skin: warm/dry, no rash Eyes: normal inspection, EOMI, sclerae normal ENT: normal ENT inspection, pharynx normal Head: normocephalic, atraumatic Neck: supple, no adenopathy, trachea midline Respiratory/Chest: lungs clear, normal breath sounds, no respiratory distress Cardiovascular: regular rate, rhythm, no edema, no murmur Abdomen / GI: normal bowel sounds, non tender Back: normal inspection Extremities: normal inspection, normal range of motion Neurologic/Psych: no motor/sensory deficits, alert, normal reflexes, oriented x 3 Diagnosis Lumbar spinal stenosis Plan of Treatment Removal of hardware L5-S1, decompression and fusion L4-5 possible L3-4
--- NOTE | 2017-09-22 14:06 | DIAGNOSTIC IMAGING REPORT ---
BILATERAL CAROTID DOPPLER STUDY HISTORY: R carotid bruit COMPARISON: None. TECHNIQUE: Real-time, grayscale, and color Doppler sonography of the carotid arteries was performed. Imaging reviewed in the transverse and longitudinal planes. All measurements were calculated based on NASCET criteria. FINDINGS: Antegrade flow is seen in the bilateral vertebral arteries. The brachial pressures were not performed. No significant calcified plaque. The peak systolic velocity within the right ICA is 74 cm/s. The right systolic ratio is 0.9. The peak systolic velocity within the left ICA is 115 cm/s. The left systolic ratio is 1.5. IMPRESSION: No hemodynamically significant stenosis seen within the carotid arteries. Electronically signed by: Bry Stout M.D. 09/22/2017 2:05 PM Dictated Date/Time: 09/22/2017 2:04 PM
[2017-09-22] MEDS ORDERED: BUPIVACAINE/EPINEPHRINE 0.5% MPF 1:200,000 30 ML VIAL ONE (14:56)
[2017-09-22] MEDS ORDERED: BACITRACIN 50000 UNIT VIAL ONE (14:56)
[2017-09-22] MEDS ORDERED: FENTANYL CITRATE INJ 50 MCG/1 ML 2 ML VIAL ONE (15:10)
[2017-09-22] MEDS ORDERED: HYDROmorphone INJ 2 MG/ML SYR/VIAL IV PRN (15:30)
[2017-09-22] MEDS ORDERED: EpHEDrine SULFATE INJ 50 MG/ML AMP IV PRN (15:30)
[2017-09-22] MEDS ORDERED: FENTANYL CITRATE INJ 50 MCG/1 ML 2 ML VIAL IV PRN (15:30)
[2017-09-22] MEDS ORDERED: PHENYLEPHRINE 100MCG/ML 5ML SYR IV PRN (15:30)
[2017-09-22] MEDS ORDERED: ONDANSETRON INJ 2 MG/ML 2 ML VIAL IV PRN ×2 (15:30→17:15)
[2017-09-22] MEDS ORDERED: ATROPINE SULFATE 0.1 MG/ML 5ML SYR IV PRN (15:30)
[2017-09-22] MEDS ORDERED: ONDANSETRON INJ 2 MG/ML 2 ML VIAL ONE (15:37)
[2017-09-22] MEDS ORDERED: DEXAMETHASONE SOD INJ 4 MG/ML VIAL ONE (15:37)
[2017-09-22] MEDS ORDERED: HYDROmorphone INJ 2 MG/ML SYR/VIAL ONE (15:45)
[2017-09-22] MEDS ORDERED: GLYCOPYRROLATE INJ 0.2 MG/ML VIAL ONE (17:08)
[2017-09-22] MEDS ORDERED: NEOSTIGMINE METHYLSULFATE 5 MG/5 ML SYR ONE (17:08)
[2017-09-22] MEDS ORDERED: LIDOCAINE HCL 2% 2 ML VIAL (20MG/ML) ONE (17:08)
[2017-09-22] MEDS ORDERED: ROCURONIUM BROMIDE 10 MG/ML 5 ML VIAL IV ONE (17:08)
[2017-09-22] MEDS ORDERED: PROPOFOL IV EMULSION 10 MG/ML 20 ML VIAL IV ONE (17:08)
[2017-09-22] MEDS ORDERED: SODIUM CHLORIDE 0.9% 1000ML 1,000 ML IV SCH (17:12)
--- NOTE | 2017-09-22 17:12 | [facility] Operative Report ---
Operative Report Operative Date Sep 22, 2017. Pre-Operative Diagnosis Spinal Stenosis Post-Operative Diagnosis Same Procedure(s) Performed 1. Removal of instrumentation L5-S1. #2 exploration of fusion L5-S1. #3 lumbar decompression medial facetectomies L3-4 L4-5. #4 posterior spinal fusion L4-5. #5 placement posterior instrumentation L4-5 #6 interbody fusion L4-5. #7 placed a peek cage 13 x 22 mm in all 4 5. #8 placement of locally harvested Beasley's Artegraft in the posterior lateral gutters. #9 placement of infuse collagen sponge master graft in the posterior lateral gutters and ostial amp bone graft in the interbody space. Surgeon Dr. Beverly Cell Inspector Surgeon(s) Leti rS PA-C Estimated Blood Loss 100 Findings Severe spinal stenosis Description of Procedure Patient was met with preoperatively case discussed all questions addressed. After informed consent obtained patient was taken to the operative suite underwent intubation and placed in a prone position on the Erick table on top of the Crow frame. All bony prominences were well-padded eyes inspected to ensure no external pressure placed upon the. This point the lumbar spine was prepped and draped in normal sterile fashion. Sharp dissection the assistance of Bovie cautery was then performed down to and exposing the lamina and transverse processes of L4 and instrumentation at the L5-S1 levels bilaterally. Then proceeded remove the hardware at L5-S1 exploring the fusion mass noting it to be intact. I then performed a complete laminectomy of L4 partial laminectomy of L3 addressing severe lateral recess and foraminal stenosis. After this complete pedicle screws were placed in L4 and L5 bilaterally with the assistance of fluoroscopy in the properly sized janell placed. Through a transforaminal approach on the right complete discectomy was performed endplates created to subcortical bleeding bone and a 13 x 22 mm peek cage filled with OsteoSet bone graft tapped in position. The rods were then compressed locked into final position bilaterally. Transverse processes of L4 and L5 burred to subcortical bleeding bone. Infuse collagen sponge master graft and locally harvested morselized autograft placed in the posterior lateral gutters. A 15 round YANDEL drain inserted. Incision was then closed with 1 Vicryl fascia 2-0 Vicryl subcutaneous leak 4-0 Monocryl for final skin closure Steri-Strips sterile dressings placed. Patient will continue PACU in stable condition. Please note Leti Sr was present throughout the entire procedure involved in patient positioning complex portions of the surgery and final skin closure. I attest to the content of the Intraoperative Record and any orders documented therein. Any exceptions are noted below.
[2017-09-22] MEDS ORDERED: hydrOXYzine HCL 25 MG TAB PO PRN (17:15)
[2017-09-22] MEDS ORDERED: ACETAMINOPHEN 500 MG TAB PO PRN (17:15)
[2017-09-22] MEDS ORDERED: BISACODYL 10 MG SUPP PR PRN (17:15)
[2017-09-22] MEDS ORDERED: LORAZEPAM INJ 0.5 MG in SYRINGE 0.75 ML IV PRN (17:15)
[2017-09-22] MEDS ORDERED: NALOXONE HCL 0.4 MG/1 ML VIAL/CARP IV PRN ×2 (17:15)
[2017-09-22] MEDS ORDERED: SOD PHOSPHATE/SOD BIPHOSPHATE ENEMA 132 ML BTL PR PRN (17:15)
[2017-09-22] MEDS ORDERED: METOCLOPRAMIDE HCL INJ 5 MG/ML 2 ML VIAL IV PRN (17:15)
[2017-09-22] MEDS ORDERED: ALUMINUM/MAGNESIUM SUSP 30 ML UDC PO PRN (17:15)
[2017-09-22] MEDS ORDERED: LORAZEPAM 0.5 MG TAB PO PRN (17:15)
[2017-09-22] MEDS ORDERED: FAMOTIDINE 20 MG TAB PO PRN (17:15)
[2017-09-22] MEDS ORDERED: DO NOT ADMINISTER FLU VACCINE PRN (17:15)
[2017-09-22] MEDS ORDERED: PROMETHAZINE HCL INJ 12.5 MG in SODIUM CHLORIDE 0.9% 50ML 50 ML IV PRN (17:15)
[2017-09-22] MEDS ORDERED: DO NOT ADMINISTER PNEUMOCOCCAL VACCINE PRN (17:15)
[2017-09-22] MEDS ORDERED: MAGNESIUM HYDROXIDE SUSP 30 ML UDC PO PRN (17:15)
[2017-09-22] MEDS ORDERED: ACETAMINOPHEN IV 100 ML IV PRN (17:15)
[2017-09-22] MEDS ORDERED: FLOSEAL HEMOSTATIC MATRIX 10ML TOP ONE (17:27)
[2017-09-22] MEDS: HYDROmorphone HCL 0.5MG/ML 50 ML CASSETTE IV PRN ×3 (17:46→23:11)
--- NOTE | 2017-09-22 18:26 | Anesthesiology Progress Note ---
Anesthesia Post Op Note Date & Time Sep 22, 2017 at 18:26 Vital Signs Pain Intensity: 3 Vital Signs Past 12 Hours Date Time Temp Pulse Resp B/P (MAP) Pulse Ox O2 Delivery O2 Flow Rate FiO2 09/22/17 18:05 37.2 55 14 149/74 100 Nasal Cannula 4 09/22/17 17:55 55 14 144/72 100 Nasal Cannula 4 09/22/17 17:45 56 14 156/74 100 Oxymask 10 09/22/17 17:35 59 14 146/78 100 Oxymask 10 09/22/17 17:28 37.3 63 14 154/81 100 Oxymask 10 09/22/17 15:05 85 18 142/88 (106) 98 Room Air 09/22/17 11:30 36.7 85 20 161/84 99 Room Air Notes Mental Status: alert / awake / arousable, participated in evaluation Pt Amnestic to Procedure: Yes Nausea / Vomiting: adequately controlled Pain: adequately controlled Airway Patency, RR, SpO2: stable & adequate BP & HR: stable & adequate Hydration State: stable & adequate Anesthetic Complications: no major complications apparent
[2017-09-22] MEDS: SODIUM CHLORIDE 0.9% 1000ML 1,000 ML IV SCH (19:32)
[2017-09-22] MEDS: SIMVASTATIN 40 MG TAB PO SCH (21:36)
[2017-09-22] MEDS: DOCUSATE SODIUM/SENNA 50/8.6MG TAB PO SCH (21:36)
[2017-09-23] VITALS (8 sets, daily range): BP systolic 108–133; BP diastolic 62–73; PULSE 72–84; TEMP 36.3–37.3; O2SAT 92–100
[2017-09-23] MEDS: SODIUM CHLORIDE 0.9% 1000ML 1,000 ML IV SCH (02:42)
[2017-09-23] MEDS: CEFAZOLIN IV 1,000 MG in SYRINGE 0 ML IV SCH ×2 (02:42→11:16)
[2017-09-23] MEDS ORDERED: NURSING DECISION MEDICATION ORDER SCH (05:15)
[2017-09-23] MEDS ORDERED: HYDROmorphone INJ 0.5 MG/0.5 ML SYR IV PRN (06:00)
[2017-09-23] MEDS ORDERED: DC PCA ONE (06:00)
[2017-09-23] MEDS ORDERED: HYDROmorphone INJ 2 MG/ML SYR/VIAL IV PRN (06:00)
[2017-09-23 06:44] LABS: CREATININE 0.48 mg/dl (0.60-1.20); POTASSIUM 4.2 mmol/L (3.5-5.1)
[2017-09-23 06:45] LABS: HEMATOCRIT 36.2 % (37-47); HEMOGLOBIN 12.3 g/dL (12.0-16.0); MEAN CORPUSCULAR HEMOGLOBIN 30.9 pg (25-34); MEAN PLATELET VOLUME 10.6 fL (7.4-10.4); PLATELET COUNT 228 K/uL (130-400); RED CELL DISTRIBUTION WIDTH CV 14.6 % (11.5-14.5); WHITE BLOOD COUNT 8.84 K/uL (4.8-10.8)
[2017-09-23 06:51] LABS: BASO % 0.1 %; BASO ABS # 0.01 K/uL (0-0.2); IG# 0.03 K/uL (0.00-0.02); LYMPH % 5.4 %; LYMPH ABS # 0.48 K/uL (1.2-3.4); MONO % 5.9 %; MONO ABS # 0.52 K/uL (0.11-0.59); NEUT % 88.3 %
--- NOTE | 2017-09-23 08:17 | Anesthesiology Progress Note ---
Anesthesia Post Op Note Date & Time Sep 23, 2017 at 08:17 Vital Signs Pain Intensity: 0.0 Vital Signs Past 12 Hours Date Time Temp Pulse Resp B/P (MAP) Pulse Ox O2 Delivery O2 Flow Rate FiO2 09/23/17 07:31 36.6 84 16 108/62 (77) 96 Room Air 09/23/17 05:10 Room Air 09/23/17 02:43 100 Nasal Cannula 2.0 09/23/17 02:27 36.3 84 14 124/73 (90) 99 Nasal Cannula 2.0 09/23/17 00:14 Nasal Cannula 4.0 09/22/17 22:57 36.4 88 14 109/68 (82) 100 Nasal Cannula 4.0 09/22/17 21:20 36.7 89 14 125/74 (91) 100 Nasal Cannula 3.0 89 Notes patient in restroom washing up with nurse. ESTELA at this time.
[2017-09-23] MEDS: OXYCODONE HCL IR 5 MG TAB (IMMEDIATE RELEASE) PO PRN ×4 (09:11→23:44)
[2017-09-23] MEDS: ASPIRIN 81 MG ECTAB PO SCH (09:12)
[2017-09-23] MEDS: TRIAMTERENE/HCTZ 37.5/25MG CAP PO SCH (09:12)
--- NOTE | 2017-09-23 09:24 | DIAGNOSTIC IMAGING REPORT ---
INTRAOPERATIVE RADIOGRAPHS CLINICAL HISTORY: L4-L5 spinal fusion. Hardware removal. Fluoroscopy time: 16 seconds. FINDINGS: 2 spot fluoroscopic views of the lumbar spine are presented. There has been discectomy at L4-L5 and L5-S1 with laminectomy and posterior fusion at L4-L5. Interpedicular screws are seen at this level. The orthopedic hardware appears intact. IMPRESSION: Intraoperative images from lumbar spinal fusion surgery as above. Electronically signed by: Carlos Alberto Urbina M.D. 09/22/2017 5:16 PM Dictated Date/Time: 09/22/2017 5:16 PM
[2017-09-23] MEDS ORDERED: RXC5 PO (13:15)
--- NOTE | 2017-09-23 13:15 | Discharge Instructions ---
Discharge Instructions Date of Service Sep 23, 2017. Admission Reason for Admission: Lumbar Spinal Stenosis Discharge Discharge Diagnosis / Problem: lumbar stenosis Discharge Goals Goal(s): Improve function Activity Recommendations Activity Limitations: per Instructions/Follow-up section . Instructions / Follow-Up Instructions / Follow-Up ACTIVITY RECOMMENDATIONS: SELF CARE INSTRUCTIONS AFTER THORACIC/LUMBAR FUSIONS 1. You may walk to your tolerance. It is good exercise for your legs and back. Expect some back and intermittent leg aches and pains. 2. You may perform "counter-top" level activities (make a sandwich, josette with a project, etc.). 3. No bending or lifting of more than 10 pounds or back twisting of any nature (roll like a log when turning in bed). 4. You may ride in a car for 20-30 minutes at a time. No driving until after your first visit with your doctor. 5. Frequent changes of position and restricting sitting to 30 minutes at a time will help limit the amount of back spasms and stiffness you may experience. 6. You may discontinue the use of ambulatory aids (cane, crutches, etc.) once your strength and confidence allow. 7. You may turbine blade assembler the shower and let water strike your incision when you arrive home at least once daily. Do not take a tub bath, sit in a hot tub or go into a swimming pool until after your first recheck in the office. SPECIAL CARE INSTRUCTIONS: VERY IMPORTANT TO READ AND REVIEW A. Your surgical incision has been closed with a cosmetic suture under the skin that will dissolve in about 6 weeks. In 14 days, you can use a pair of clean scissors and cut the suture that is left outside of the skin at the ends of your incision. 1. The small skin tapes can be removed 7 days after surgery if they have not fallen off by that point. 2. You may keep the wound open to air as much as possible to promote healing after post-op day number 5 unless told otherwise by your doctor. 3. If you think the wound looks like it is becoming infected (redness or worsening drainage) and/or you are experiencing fever, chill or worsening back pain and muscle spasms, contact the office so that we may evaluate you as soon as possible. B. Complications are uncommon, but please contact us if you have any signs or symptoms of: 1. wound infection (fever higher than 102.5 degrees F, redness, separation of wound, drainage, or increasing pain from the incision) 2. blood clots in legs (pain, swelling, redness and warmth in legs) 3. urinary tract infection (fever higher than 102.5 degrees F, burning upon urination or increased frequency of urination) 4. nerve problems (inability to walk on your toes or heels, numbness, loss of bowel or bladder control) 5. any other symptoms that concern you C. Please call the office at if you have any concerns or questions about your operation or recovery. D. No smoking! Smoking drastically decreases the chance of a solid fusion. E. Do not take any anti-inflammatory medications (Indocin, Advil, Motrin, Aspirin, Naprosyn, etc.) as these may inhibit the chance of a solid fusion. Tylenol is okay to take for pain. MANAGING PAIN AFTER SPINAL SURGERY 1. Narcotic medication is intended for short-term use and will be provided for surgical pain. Surgical pain usually lasts for a period of 4-6 weeks. Narcotic medication includes Percocet, Vicodin, Darvocet, Tylenol #3 or Lortab. 2. Longer-term pain is more appropriately treated with non-narcotic medication such as Tylenol ES. 3. Muscle spasm is not appropriately treated with narcotics. Muscle relaxers such as Soma, Flexeril or Skelaxin can be used along with Tylenol ES. 4. Remember that we all live with some "aches and pains". This is not unusual or uncommon after an injury or as we get older. a. Back pain is expected and may include muscle spasms for 4 to 6 weeks after surgery. The pain should gradually improve. If the pain worsens for no apparent reason, please contact the office. b. Intermittent leg pain may also be experienced and should not be concerned about unless it worsens for no apparent reason. If so, please contact the office. 5. We will provide appropriate medication within the normal guidelines of their prescribed use. We will also be very cautious and aware of potential abuse and extended duration of patients' medication needs. a. Pain medications are for your comfort and to assist with sleep and rest so that the tissue can heal. They are not provided in order to return to normal activity and should not be used through the day. To do so or worsening pain at night can result from ongoing tissue damage and development of tolerance to the prescribed medicine. 6. Please allow 2-3 days to process refills. Prescriptions will not be mailed but must be picked up at the office. FOLLOW UP VISIT: Keep your scheduled follow-up appointment. Any questions, please call the office at . Current Hospital Diet Patient's current hospital diet: Regular Diet Discharge Diet Recommended Diet: Regular Diet Procedures Procedures Performed: L5-S1 Removal of Hardware, L4-L5 Decompression and Fusion, Interbody fusion L4-L5. Application of infuse and osteoamp. Pending Studies Studies pending at discharge: no Medical Emergencies . Who to Call and When: Medical Emergencies: If at any time you feel your situation is an emergency, please call 911 immediately. . Non-Emergent Contact Non-Emergency issues call your: Primary Care Provider . "Provider Documentation" section prepared by Andrae Beverly. .
--- NOTE | 2017-09-23 13:22 | Progress Note ---
Progress Note Date of Service Sep 23, 2017. Progress Note Back pain is controlled leg symptoms markedly improved. Vital signs are stable. On exam she is good strength testing appears comfortable. Assessment status post lumbar decompression fusion. Plan at this time will continue physical therapy advance her bowel regiment anticipate home this weekend.
[2017-09-23] MEDS: SIMVASTATIN 40 MG TAB PO SCH (20:47)
[2017-09-23] MEDS: DOCUSATE SODIUM/SENNA 50/8.6MG TAB PO SCH (20:47)
[2017-09-24] MEDS: POLYETHYLENE (MIRALAX) 17 GM PACK PO SCH ×4 (05:29→23:38)
[2017-09-24] MEDS: OXYCODONE HCL IR 5 MG TAB (IMMEDIATE RELEASE) PO PRN ×3 (05:29→22:22)
[2017-09-24 07:41] VITALS: BP 114/67; PULSE 77; TEMP 37; O2SAT 95
[2017-09-24] MEDS: TRIAMTERENE/HCTZ 37.5/25MG CAP PO SCH (08:53)
[2017-09-24] MEDS: ASPIRIN 81 MG ECTAB PO SCH (08:53)
[2017-09-24] MEDS ORDERED: KETOROLAC TROMETHAMINE 15 MG/ML VIAL IV PRN (10:00)
--- NOTE | 2017-09-24 10:24 | Progress Note ---
Progress Note Date of Service Sep 24, 2017. Progress Note Patient's back pain is controlled. Leg symptoms are markedly improved. On exam she is in the chair at bedside is good strength testing appears comfortable. Assessment status post lumbar decompression fusion. Plan at this time will maintain the YANDEL drain another 24 hours anticipate discharge home tomorrow.
[2017-09-24 15:13] VITALS: BP 108/68; PULSE 76; TEMP 37.2; O2SAT 97
[2017-09-24] MEDS: DOCUSATE SODIUM/SENNA 50/8.6MG TAB PO SCH (20:39)
[2017-09-24] MEDS: SIMVASTATIN 40 MG TAB PO SCH (20:39)
[2017-09-24 23:23] VITALS: BP 126/67; PULSE 92; TEMP 37.4; O2SAT 92
[2017-09-25] MEDS ORDERED: NURSING DECISION MEDICATION ORDER SCH (06:00)
[2017-09-25 06:11] VITALS: BP 102/69; PULSE 95; TEMP 36.6; O2SAT 96
[2017-09-25] MEDS: OXYCODONE HCL IR 5 MG TAB (IMMEDIATE RELEASE) PO PRN ×2 (06:20→10:42)
[2017-09-25] MEDS: ASPIRIN 81 MG ECTAB PO SCH (07:46)
[2017-09-25] MEDS: TRIAMTERENE/HCTZ 37.5/25MG CAP PO SCH (07:46)
[2017-09-25] MEDS ORDERED: DFL50 PO (10:15)
[2017-09-25] MEDS ORDERED: FLUCONAZOLE 50 MG TAB PO ONE (10:15)
[2017-09-25 10:46] VITALS: BP 102/69; PULSE 95; TEMP 36.6; O2SAT 96
--- NOTE | 2017-09-25 10:49 | Discharge Summary ---
Orthopedic Discharge Summary Admission Date/Reason Sep 22, 2017 at 13:44 Lumbar Spinal Stenosis. Discharge Date/Disposition Sep 25, 2017 Home Diagnosis Principal Diagnosis: Lumbar spinal stenosis Admission Physical Exam As per Admitting History & Physical. Hospital Course Patient underwent lumbar decompression fusion tolerated this well was taken to the orthopedic floor postoperatively. Postop day #1 she was up and amatory progress through postop day #2. Postop day #3 YANDEL drain decreased probably pain controlled subsequently discharged home. Discharge orders and instructions found in the chart for further review. Discharge Instructions Please refer to the electronic Patient Visit Report (Discharge Instructions) for additional information.
== END 2017-09-25 11:20 | disposition home or self-care (01) | DRG 455 ==
LOC: C.ACU 11:05 → C.3E 13:44 → ENRESERV 17:46
PROVIDERS: ADMIT Orthopaedic Surgery Orthopaedic Surgery of the Spine; ATTEND Orthopaedic Surgery Orthopaedic Surgery of the Spine
PROC: 0SG00AJ Fusion of Lumbar Vertebral Joint with Interbody Fusion Device, Posterior Approach, Anterior Column, Open Approach (ICD-10-PCS; principal; 2017-09-22 12:55)
PROC: 0SG0071 Fusion of Lumbar Vertebral Joint with Autologous Tissue Substitute, Posterior Approach, Posterior Column, Open Approach (ICD-10-PCS; principal; 2017-09-22 12:55)
PROC: 01NB0ZZ Release Lumbar Nerve, Open Approach (ICD-10-PCS; principal; 2017-09-22 12:55)
PROC: 0SP304Z Removal of Internal Fixation Device from Lumbosacral Joint, Open Approach (ICD-10-PCS; principal; 2017-09-22 12:55)
PROC: 0ST20ZZ Resection of Lumbar Vertebral Disc, Open Approach (ICD-10-PCS; principal; 2017-09-22 12:55)
DX: M48.061 Spinal stenosis, lumbar region without neurogenic claudication (principal); M54.10 Radiculopathy, site unspecified; I10 Essential (primary) hypertension; Z98.1 Arthrodesis status; Z79.82 Long term (current) use of aspirin; Z79.890 Hormone replacement therapy; Z79.899 Other long term (current) drug therapy; Z88.8 Allergy status to other drugs, medicaments and biological substances; Z85.828 Personal history of other malignant neoplasm of skin; Z86.79 Personal history of other diseases of the circulatory system; Z90.49 Acquired absence of other specified parts of digestive tract; Z90.710 Acquired absence of both cervix and uterus; Z98.41 Cataract extraction status, right eye; Z98.42 Cataract extraction status, left eye

== ENCOUNTER 2017-09-30 13:34 | Emergency (ER) | payer OTHER ==
[~2017-09-30] VITALS: Ht 170.2 cm; Wt 60.0 kg
[~2017-09-30 13:34] MED LIST changes: -ACETAMINOPHEN 500 MG TAB PO SCH; -CEFAZOLIN 1000MG IV PUSH 7.5 ML IV SCH; -CLB/200 PO; -CeleBREX 200 MG CAP PO SCH; +DFL50 PO; -GABAPENTIN 300 MG CAP PO SCH; -LACTATED RINGER'S 1000ML 1,000 ML IV SCH; +RXC5 PO
[2017-09-30 13:41] VITALS: TEMP 36.4; Ht 170.2 cm; Wt 60.0 kg
--- NOTE | 2017-09-30 14:18 | EMERGENCY ROOM VISIT NOTE ---
History Report prepared by Ramesh: Bob Coon Under the Supervision of: Dr. Trent Matute M.D. First contact with patient: 14:06 Chief Complaint: VOMITING Stated Complaint: NAUSEA,VOMITING, STATUS POST BACK SURGERY 7 DAYS History of Present Illness The patient is a 76 year old female status-post back surgery 8 days ago who presents to the Emergency Room with complaints of worsening nausea over the past few days. She states that she has stenosis, and had the surgery here with Dr. Beverly. The patient says that she was doing well, but she has been taking Hydrocodone which she thinks is causing her nausea. The patient adds that she has been having episodes of vomiting. She says that her bowel have not been moving well this week, but she took suppositories today which allowed her to have 2 bowel movements today, which relieved her abdominal pain. She denies any fevers, or pus or drainage from the surgical site. She also denies any chest pain or shortness of breath. Source of History: patient Onset: Over past few days Position: other (global) Quality: other (nausea) Associated Symptoms: + vomiting, + abdominal pain, No fevers, No chest pain , No SOB Review of Systems See HPI for pertinent positives and negatives. A total of ten systems were reviewed and were otherwise negative. Past Medical & Surgical Medical Problems: (1) Cervical stenosis of spinal canal (2) Dysphagia (3) HTN (hypertension) (4) Lumbar stenosis with neurogenic claudication Surgical Problems: (1) H/O spinal fusion (2) H/O: hysterectomy (3) History of appendectomy Family History Cancer Heart disease Hypertension Lung disease Social History Smoking Status: Never Smoker Alcohol Use: none Marital Status: Occupation Status: unemployed Current/Historical Medications Scheduled Aspirin (Aspirin Ec), 81 MG PO QAM Estradiol (Estradiol), 1 TAB PO QAM Fluconazole (Fluconazole), 50 MG PO NOW Multiple Vitamins W/ Minerals (Centrum Silver Adult 50+), 1 TAB PO QAM Ondasetron Odt (Zofran Odt), 4 MG SL Q6H Senna/Docusate Sod (Senokot S), 1 TAB PO PRN Sennosides-Docusate Sodium (Stool Softener), 1 TAB PO TID Simvastatin (Zocor), 40 MG PO QPM Triamterene/Hctz (Dyazide 37.5MG/25MG), 1 TAB PO QAM Scheduled PRN Acetaminophen (Tylenol Arthritis Ext Rel), 650 MG PO Q8H PRN for Pain Hydrocodone/Acetaminophen 5MG/325MG ([place] 5MG/325MG), 1-2 TABLET PO Q6H PRN for N Oxycodone HCl (Oxycodone HCl), 5-10 MG PO Q4H PRN for Moderate - severe pain Allergies Coded Allergies: Amlodipine (Verified Adverse Reaction, Intermediate, ANKLES SWELL UP, ) Physical Exam Vital Signs Date Time Temp Pulse Resp B/P (MAP) Pulse Ox O2 Delivery O2 Flow Rate FiO2 09/30/17 19:26 84 16 137/67 94 09/30/17 19:18 137/67 09/30/17 16:37 88 13 143/83 97 Room Air 09/30/17 16:34 86 12 98 09/30/17 16:30 143/83 09/30/17 16:04 83 12 99 09/30/17 16:01 126/73 09/30/17 15:49 84 12 138/83 98 Room Air 09/30/17 15:34 81 18 99 09/30/17 15:30 138/83 09/30/17 15:15 78 09/30/17 15:06 138/79 09/30/17 15:03 82 12 138/79 97 Room Air 09/30/17 13:41 36.4 82 20 161/85 92 Room Air Physical Exam Physical Exam GENERAL: She is oriented to person, place, and time. She appears well- developed and well-nourished. She does not appear distressed. ____ HENT: Exam performed. Head: Normocephalic and atraumatic. Right Ear: External ear normal. No mastoid tenderness. Left Ear: External ear normal. No mastoid tenderness. Mouth/Throat: The oropharynx is clear and moist. No trismus in the jaw. No dental abscesses or uvula swelling. No oropharyngeal exudate or tonsillar abscesses. ____ EYES: Conjunctivae and EOM are normal. Pupils are equal, round, and reactive to light. Right eye exhibits no discharge. Left eye exhibits no discharge. No scleral icterus. ____ NECK: Normal range of motion. Neck supple. No JVD present. No spinous process tenderness present. No carotid bruit present. No rigidity. No tracheal deviation and normal range of motion present. No Brudzinski's sign and no Kernig 's sign noted. ____ CV: Normal rate, regular rhythm, normal heart sounds and intact distal pulses. There is no peripheral edema. Palpable radial pulses bue. ____ PULM/CHEST: Effort normal and breath sounds normal. No respiratory distress. No stridor. She has no wheezes. She has no rales. Chest Wall: She exhibits no tenderness. ____ ABD: The abdomen is soft. Bowel sounds are normal. She has no distension. No mass is present. There is no tenderness. There is no rebound, no guarding, no Hein's sign and no tenderness at McBurney's point. Rovsig negative MUSC/SKEL: Normal range of motion. There is no peripheral edema, tenderness or deformity. LYMPH: No cervical adenopathy. ____ NEURO: She is alert and oriented to person, place, and time. She has normal strength. No cranial nerve deficit or sensory deficit. Coordination and gait normal. GCS eye subscore is 4. GCS verbal subscore is 5. GCS motor subscore is 6. Cerebellar tests wnl. ____ SKIN: Incision on the midline back which is clean and without any purulent discharge or bleeding. Healing appropriately. Skin is warm and dry. She is not diaphoretic. ____ PSYCH: She has a normal mood and affect. She behavior is normal. Judgment and thought content normal. ____ Medical Decision & Procedures Laboratory Results 09/30/17 15:20 Red Blood Count 3.80, Mean Corpuscular Volume 89.7, Mean Corpuscular Hemoglobin 30.3, Mean Corpuscular Hemoglobin Concent 33.7, Mean Platelet Volume 9.3, Neutrophils (%) (Auto) 80.8, Lymphocytes (%) (Auto) 8.7, Monocytes (%) (Auto) 7.6, Eosinophils (%) (Auto) 1.9, Basophils (%) (Auto) 0.5, Neutrophils # (Auto) 8.70, Lymphocytes # (Auto) 0.94, Monocytes # (Auto) 0.82, Eosinophils # (Auto) 0.20, Basophils # (Auto) 0.05 09/30/17 15:20 Test 09/30/17 00:00 09/30/17 15:20 Urine Color YELLOW Urine Appearance TURBID (CLEAR) Urine pH >= 9.0 (4.5-7.5) Urine Specific O'Brien 1.015 (1.000-1.030) Urine Protein NEG (NEG) Urine Glucose (UA) NEG (NEG) Urine Ketones 1+ (NEG) Urine Occult Blood NEG (NEG) Urine Nitrite NEG (NEG) Urine Bilirubin NEG (NEG) Urine Urobilinogen NEG (NEG) Urine Leukocyte Esterase NEG (NEG) Urine WBC (Auto) 1-5 /hpf (0-5) Urine RBC (Auto) 5-10 /hpf (0-4) Urine Hyaline Casts (Auto) 0 /lpf (0-5) Urine Epithelial Cells (Auto) 5-10 /lpf (0-5) Urine Bacteria (Auto) NEG (NEG) White Blood Count 10.76 K/uL (4.8-10.8) Red Blood Count 3.80 M/uL (4.2-5.4) Hemoglobin 11.5 g/dL (12.0-16.0) Hematocrit 34.1 % (37-47) Mean Corpuscular Volume 89.7 fL (80-100) Mean Corpuscular Hemoglobin 30.3 pg (25-34) Mean Corpuscular Hemoglobin Concent 33.7 g/dl (32-36) Platelet Count 336 K/uL (130-400) Mean Platelet Volume 9.3 fL (7.4-10.4) Neutrophils (%) (Auto) 80.8 % Lymphocytes (%) (Auto) 8.7 % Monocytes (%) (Auto) 7.6 % Eosinophils (%) (Auto) 1.9 % Basophils (%) (Auto) 0.5 % Neutrophils # (Auto) 8.70 K/uL (1.4-6.5) Lymphocytes # (Auto) 0.94 K/uL (1.2-3.4) Monocytes # (Auto) 0.82 K/uL (0.11-0.59) Eosinophils # (Auto) 0.20 K/uL (0-0.5) Basophils # (Auto) 0.05 K/uL (0-0.2) RDW Standard Deviation 45.8 fL (36.4-46.3) RDW Coefficient of Variation 13.9 % (11.5-14.5) Immature Granulocyte % (Auto) 0.5 % Immature Granulocyte # (Auto) 0.05 K/uL (0.00-0.02) Anion Gap 3.0 mmol/L (3-11) Est Creatinine Clear Calc Drug Dose 82.2 ml/min Estimated GFR () 105.7 Estimated GFR (Non- 91.2 BUN/Creatinine Ratio 31.5 (10-20) Calcium Level 8.9 mg/dl (8.5-10.1) Total Bilirubin 0.5 mg/dl (0.2-1) Direct Bilirubin 0.1 mg/dl (0-0.2) Aspartate Amino Transf (AST/SGOT) 18 U/L (15-37) Alanine Aminotransferase (ALT/SGPT) 17 U/L (12-78) Alkaline Phosphatase 66 U/L (45-117) Total Protein 6.5 gm/dl (6.4-8.2) Albumin 3.1 gm/dl (3.4-5.0) Lipase 69 U/L (73-393) Laboratory results reviewed by me Medications Administered Medications (Trade) Dose Ordered Sig/Uche Route Start Time Stop Time Status Last Admin Dose Admin Morphine Sulfate (MoRPHine SULFATE INJ) 2 mg NOW STAT IV 09/30/17 14:19 09/30/17 14:20 DC 09/30/17 15:02 2 MG Ondansetron HCl (Zofran Inj) 4 mg NOW STAT IV 09/30/17 14:19 09/30/17 14:20 DC 09/30/17 15:02 4 MG Ketorolac Tromethamine (Toradol Inj) 15 mg NOW STAT IV 09/30/17 15:56 09/30/17 15:58 DC 09/30/17 16:03 15 MG Ondansetron HCl (Zofran Inj) 4 mg NOW STAT IV 09/30/17 16:18 09/30/17 16:20 DC 09/30/17 16:34 4 MG Dexamethasone Sodium Phosphate (Dexamethasone Inj Pf) 10 mg STK-MED ONCE .ROUTE 09/30/17 16:31 09/30/17 16:32 DC 09/30/17 16:34 10 MG Ondansetron HCl (Zofran Inj) 4 mg NOW STAT IV 09/30/17 17:32 09/30/17 17:33 DC 09/30/17 17:45 4 MG Morphine Sulfate (MoRPHine SULFATE INJ) 2 mg STK-MED ONCE .ROUTE 09/30/17 17:43 09/30/17 17:44 DC 09/30/17 17:45 2 MG ED Course 1413: The patient was evaluated in room C12B. A complete history and physical exam was performed. 1419: Zofran Inj 4 mg IV, Morphine Sulfate Inj 2 mg IV. 1556: Toradol Inj 15 mg IV. 1612: I reevaluated and updated the patient. Abdominal exam shows no tenderness to palpation. 1618: Patient surgeon Dr. Liu came and evaluated the patient. He recommends the patient Decadron injection. Dexamethasone Sodium Phosphate 6 mg/ Syringe 1.5 ml @ 1 mls/min IV, Zofran Inj 4 mg IV. 1723: I reevaluated and updated the patient. Abdominal exam shows no tenderness to palpation. 1732: Zofran Inj 4 mg IV, Morphine Sulfate Inj 2 mg IV. 1749: I reevaluated the patient and her vitals signs are stable. Labs within normal limits. She reports pain and nausea is improved status-post analgesia, steroids, and anti-emetics. Serial abdominal exam within normal limits. No pain on palpation of the abdomen. She was discharged on Zofran. DISCHARGE - Plan of care discussed with patient and questions answered. The patient was given both verbal and printed discharge instructions. The patient verbalized understanding and ability to comply. The patient is to seek outpatient follow up as noted in the discharge instructions. The patient verbalized understanding and ability to comply. The patient is discharged in stable condition. The patient was instructed to return for worsening symptoms. Medical Decision vitals signs are stable. Labs within normal limits. She reports pain and nausea is improved status-post analgesia, steroids, and anti-emetics. Serial abdominal exam within normal limits. No pain on palpation of the abdomen. She was discharged on Zofran. DISCHARGE - Plan of care discussed with patient and questions answered. The patient was given both verbal and printed discharge instructions. The patient verbalized understanding and ability to comply. The patient is to seek outpatient follow up as noted in the discharge instructions. The patient verbalized understanding and ability to comply. The patient is discharged in stable condition. The patient was instructed to return for worsening symptoms. Medication Reconcilliation Current Medication List: was personally reviewed by me Blood Pressure Screening Patient's blood pressure: Elevated blood pressure Blood pressure disposition: Elevated BP felt to be situational Impression Primary Impression: Nausea and vomiting Additional Impression: Post-op pain Scribe Attestation The scribe's documentation has been prepared under my direction and personally reviewed by me in its entirety. I confirm that the note above accurately reflects all work, treatment, procedures, and medical decision making performed by me. The chart was completed utilizing [employer] Speech voice recognition software. Grammatical errors, random word insertions, pronoun errors, and incomplete sentences are an occasional consequence of this system due to software limitations, ambient noise, and hardware issues. Any formal questions or concerns about the content, text, or information contained within the body of this dictation should be directly addressed to the physician for clarification. Departure Information Dispostion Home / Self-Care Prescriptions Ondasetron Odt (ZOFRAN ODT) 4 Mg Tab 4 MG SL Q6H for Nausea, #60 TAB Prov: Trent Matute M.D. 09/30/17 Referrals Vasu Kaur M.D. (PCP) Patient Instructions ED Nausea Vomiting, My [facility] Additional Instructions Return to the emergency department if you develop fever greater than 100.4, worsening pain, vomit blood, worsening vomiting, blood in your stools. Take the Zofran prescribed 10 minutes before you take your home oral pain medications prescribed by your surgeon. Problem Qualifiers Primary Impression: Nausea and vomiting Vomiting type: unspecified Vomiting Intractability: non-intractable Qualified Codes: R11.2 - Nausea with vomiting, unspecified
[2017-09-30] MEDS ORDERED: ONDANSETRON INJ 2 MG/ML 2 ML VIAL IV STA ×3 (14:19→17:32)
[2017-09-30] MEDS ORDERED: MoRPHine SULFATE 4 MG/ML 1 ML CARP\\VIAL IV STA ×2 (14:19→17:32)
[2017-09-30 15:37] LABS: BASO % 0.5 %; BASO ABS # 0.05 K/uL (0-0.2); EOS % 1.9 %; HEMATOCRIT 34.1 % (37-47); HEMOGLOBIN 11.5 g/dL (12.0-16.0); IG# 0.05 K/uL (0.00-0.02); LYMPH % 8.7 %; LYMPH ABS # 0.94 K/uL (1.2-3.4); MEAN CELL VOLUME 89.7 fL (80-100); MEAN CORPUSCULAR HEMOGLOBIN 30.3 pg (25-34); MEAN CORPUSCULAR HGB CONC 33.7 g/dl (32-36); MEAN PLATELET VOLUME 9.3 fL (7.4-10.4); MONO % 7.6 %; MONO ABS # 0.82 K/uL (0.11-0.59); NEUT % 80.8 %; PLATELET COUNT 336 K/uL (130-400); RED CELL DISTRIBUTION WIDTH CV 13.9 % (11.5-14.5); RED CELL DISTRIBUTION WIDTH SD 45.8 fL (36.4-46.3); WHITE BLOOD COUNT 10.76 K/uL (4.8-10.8)
[2017-09-30 15:56] LABS: ALBUMIN 3.1 gm/dl (3.4-5.0); CALCIUM 8.9 mg/dl (8.5-10.1); CREATININE 0.56 mg/dl (0.60-1.20)
[2017-09-30] MEDS ORDERED: KETOROLAC TROMETHAMINE 30 MG/ML VIAL IV STA (15:56)
[2017-09-30 15:58] LABS: TOTAL PROTEIN 6.5 gm/dl (6.4-8.2)
[2017-09-30] MEDS ORDERED: DEXAMETHASONE INJ 6 MG in SYRINGE 0 ML IV STA (16:18)
[2017-09-30] MEDS ORDERED: DEXAMETHASONE **PF** INJ 10 MG/ML VIAL ONE (16:31)
[2017-09-30] MEDS ORDERED: MoRPHine SULFATE 2 MG/ML CARP ONE (17:43)
[2017-09-30] MEDS ORDERED: ONDA4TAB10 SL (17:52)
[2017-09-30 19:26] VITALS: BP 137/67; PULSE 84; O2SAT 94
== END 2017-09-30 19:30 | disposition home or self-care (01) ==
LOC: C.EDB 13:36 → C.EDC 19:30
DX: G89.18 Other acute postprocedural pain (principal); R11.2 Nausea with vomiting, unspecified; I10 Essential (primary) hypertension; Z98.1 Arthrodesis status; Z90.710 Acquired absence of both cervix and uterus; Z80.9 Family history of malignant neoplasm, unspecified; Z82.49 Family history of ischemic heart disease and other diseases of the circulatory system; Z79.82 Long term (current) use of aspirin; Z79.899 Other long term (current) drug therapy; Z88.8 Allergy status to other drugs, medicaments and biological substances

== ENCOUNTER 2021-02-03 09:08 | Inpatient (IN) ==
--- NOTE | 2021-01-19 13:04 | PAT Medication Instructions ---
Medication Instructions Date of Service January 19, 2021 Home Medications Medication Instructions Recorded simvastatin 40 mg tablet 40 mg PO HS #90 tab 06/24/20 apixaban 5 mg tablet (Eliquis) 5 mg PO BID #180 tab 10/08/20 estradiol 1 mg tablet 0.5 mg PO QAM multivitamin (Daily Multi-Vitamin) 1 tab PO QAM acetaminophen 650 mg tablet,extended release (Tylenol Arthritis Pain) 650 mg PO Q12H PRN simvastatin 40 mg tablet 40 mg PO HS apixaban 5 mg tablet (Eliquis) 5 mg PO BID celecoxib 200 mg capsule 200 mg PO QAM metoprolol succinate 25 mg tablet,extended release 24 hr 25 mg PO QAM triamterene 37.5 mg-hydrochlorothiazide 25 mg capsule 1 cap PO QAM ASK your surgeon for instructions celecoxib 200 mg capsule 200 mg PO QAM ASK your prescriber and surgeon apixaban 5 mg tablet (Eliquis) 5 mg PO BID DO NOT take the morning of surgery multivitamin (Daily Multi-Vitamin) 1 tab PO QAM triamterene 37.5 mg-hydrochlorothiazide 25 mg capsule 1 cap PO QAM Take morning of surgery With a small sip of water, OTHERWISE NOTHING TO EAT OR DRINK AFTER MIDNIGHT: estradiol 1 mg tablet 0.5 mg PO QAM (continue as normal unless told otherwise by surgeon) acetaminophen 650 mg tablet,extended release (Tylenol Arthritis Pain) 650 mg PO Q12H PRN (okay to take up to 4 hours prior to surgery if needed) metoprolol succinate 25 mg tablet,extended release 24 hr 25 mg PO QAM Take evening before surgery acetaminophen 650 mg tablet,extended release (Tylenol Arthritis Pain) 650 mg PO Q12H PRN (if needed) simvastatin 40 mg tablet 40 mg PO HS Other Notes If you have any questions please call us at [phone] or [phone] or [phone] or [phone]
--- NOTE | 2021-01-20 13:36 | Anesthesiology Consultation ---
Date of Service January 20, 2021 Assessment & Plan (1) Encounter for pre-operative examination: - COVID screening: Per assessment on 01/20: Travel screen negative, no known COVID-19 positive contacts or current COVID-19 related symptoms. Patient vaccinated. Surgeon arranging preop COVID testing. Awaiting results. - Hx glidescope intubation: L5-S1 hardware removal, L4-L5 decompression + PSF (09/22/17): Grade 1 view, Glidescope #3, ETT 7.0 at [facility] - Eliquis instructions: per surgeon/prescriber Chart Review Chart Review: Acceptable Risk for Surgery (pending surgeon-ordered cardiology clearance) and Patient seen in Pre Admission Testing Teaching & Discussion Pre-Anesthesia Teaching/Discussion Notes: Instructed NPO after midnight before surgery,except medications with 15 cc of water. Medication instructions provided according to the PAT guidelines. History Surgery Operation Date: 02/03/21 09:10 Proposed Procedures p L3-L4 Decompression Fusion, L4-L5 Hardware Removal, Spinal Cord Monitoring - Andrae Beverly DO Height/Weight Height: 5 ft 4 in Weight: 59.6 kg Allergies Allergy/AdvReac Type Severity Reaction Status Date / Time amlodipine AdvReac Intermediate Ankle Verified 01/21/21 10:09 swelling Medications Home Medications Medication Instructions Recorded Confirmed Last Taken estradiol 1 mg tablet 0.5 mg PO QAM tab 01/24/19 01/21/21 Unknown multivitamin (Daily Multi-Vitamin) 1 tab PO QAM 01/24/19 01/21/21 Unknown acetaminophen 650 mg 650 mg PO Q12H PRN 01/28/20 01/21/21 Unknown tablet,extended release (Tylenol Arthritis Pain) simvastatin 40 mg tablet 40 mg PO HS #90 tab 06/24/20 01/21/21 Unknown apixaban 5 mg tablet (Eliquis) 5 mg PO BID #180 tab 10/08/20 01/21/21 Unknown celecoxib 200 mg capsule 200 mg PO QAM 01/19/21 01/21/21 Unknown metoprolol succinate 25 mg 25 mg PO QAM 01/19/21 01/21/21 Unknown tablet,extended release 24 hr triamterene 37.5 1 cap PO QAM 01/19/21 01/21/21 Unknown mg-hydrochlorothiazide 25 mg capsule Past Medical History Medical History Atrial fibrillation on Eliquis, follows with [facility] cardiology Cervical stenosis of spinal canal Dysphagia chronic, unchanged since cervical surgery (~ 5 years ago) History of SCC (squamous cell carcinoma) of skin Hyperlipidemia Osteoarthritis Stress incontinence Exercise / Class Metabolic Activity II 4-5 Yardwork/Stairs/Walk up hill (one FS (no CP, no SOB)) Past Family History Family History Mother Hypertension Asthma Father COPD (chronic obstructive pulmonary disease) Hypertension Aunt Colorectal cancer Uncle Colorectal cancer Brother Hypertension Sister Melanoma Hypertension Other Myocardial infarction No family history of adverse response to anesthesia No significant family history Denies family history of Ovarian cancer Prostate cancer Breast cancer Past Surgical History Surgical History H/O spinal fusion Cervical fusion, C5-C6 H/O vaginal hysterectomy History of appendectomy History of colonoscopy History of esophagogastroduodenoscopy (EGD) History of tonsillectomy and adenoidectomy S/P lumbar fusion x3 total L5-S1 hardware removal, L4-L5 decompression + PSF (09/22/17): Grade 1 view, Glidescope #3, ETT 7.0 at [facility] Status post Mohs surgery Status post placement of implantable loop recorder Implanted for palpitations evaluation (joanne barros) Past Anesthesia History Difficult Airway (L5-S1 hardware removal, L4-L5 decompression + PSF (09/22/17): Grade 1 view, Glidescope #3, ETT 7.0 at [facility]) and No Family Hx of Anesthesia Complications (except mother with perioperative awareness) History of PONV No Hx of PONV and No Hx of Motion Sickness Social History Smoking Status: Never smoker Do You Dip or Chew Tobacco: No Hx Alcohol Use: Yes alcohol intake frequency: a few times a month Hx Substance Use: No substance use type: does not use Review of Systems Patient denies chest pain, shortness of breath, dyspnea on exertion, fever, chills, cough, wheezing, palpitations. Physical Exam Vital Signs VITALS BP 144/84 P 55 TEMP 98.6 SP02 96%RA RESP 16 PHYSICAL Full cervical extension range of motion. Full TMJ range of motion. TMD 2.5 finger breaths (small chin) Mallampati Score 1 Dentition: missing molars Lungs: clear throughout to auscultation Cardiac: regular rate and rhythm, no murmurs noted Spine: normal Carotid arteries: negative bruit Extremities: no edema Lab Results Anesthesia Preop Results Results Anesthesia Widget: WBC 5.45 K/uL (4.8-10.8) 01/20/21 Hgb 14.5 g/dL (12.0-16.0) 01/20/21 Hct 43.7 % (37-47) 01/20/21 Plt 249 K/uL (130-400) 01/20/21 Na 133 mmol/L (136-145) L 01/20/21 K 4.1 mmol/L (3.5-5.1) 01/20/21 Cl 99 mmol/L (98-107) 01/20/21 CO2 32 mmol/L (21-32) 01/20/21 BUN 17 mg/dl (7-18) 01/20/21 Creat 0.64 mg/dl (0.6-1.2) 01/20/21 Glucose Level 73 mg/dl (70-99) 01/20/21 PT 10.5 Seconds (9.0-12.0) 01/20/21 PTT 28.8 Seconds (21.0-31.0) 01/20/21 INR 1.0 (0.9-1.1) 01/20/21 Urine Color Yellow 01/20/21 Urine Appearance Clear (Clear) 01/20/21 Urine pH 7.0 (4.5-7.5) 01/20/21 Urine Specific Cecil 1.009 (1.000-1.030) 01/20/21 Urine Protein Negative (Negative) 01/20/21 Urine Glucose (UA) Negative (Negative) 01/20/21 Urine Ketones Negative (Negative) 01/20/21 Urine Blood Trace (Negative) H 01/20/21 Urine Nitrite Negative (Negative) 01/20/21 Urine Bilirubin Negative (Negative) 01/20/21 Urine Urobilinogen Negative (Negative) 01/20/21 Urine Leukocyte Esterase Negative (Negative) 01/20/21 Urine WBC (Auto) 0 /hpf (0-5) 01/20/21 Urine RBC (Auto) 5-10 /hpf (0-4) H 01/20/21 Urine Hyaline Casts (Auto) 0 /lpf (0-5) 01/20/21 Urine Epithelial Cells (Auto) 5-10 /lpf (0-5) H 01/20/21 Urine Bacteria (Auto) Negative (Negative) 01/20/21 Blood Type A Positive 01/20/21 Antibody Screen NEGATIVE 01/20/21 Testing Electrocardiogram Date: 01/20/21 SB with first degree AVB. Anteroseptal infarct. Unconfirmed report. Anteroseptal infarct noted on 07/19/19 EKG (scanned into [employer]). Patient seeing cardiology prior to surgery for preop evaluation. Chest X-Ray Date: 01/20/21 FINDINGS: Loop recorder device. Cardiac silhouette is upper limits of normal in size. Mild chronic interstitial coarsening. Calcified plaque the thoracic aorta. No pneumothorax, pleural effusion, airspace consolidation or overt pulmonary edema. Cervical spinal fusion hardware. Degenerative changes of the shoulders and spine. IMPRESSION: No acute process. Echocardiogram Date: 06/19/16 EF 60 to 65%. No regional motion normalities. Type I diastolic dysfunction. Mild LAD. Mild AR. Mild to moderate MR with restricted posterior leaflet. Mild to moderate TR. Mild WA.
[~2021-02-03 09:08] MED LIST changes: -ACET1TAB84 PO; -ASPI81TA28 PO; -DFL50 PO; -ESTR0.5T3 PO; -HYDR-5688 PO; +LR 15ML/HR IV SCH; -MULT-845 PO; -RXC5 PO; -SENN-65 PO; -SENNTAB23 PO; -SIMV40TA2 PO; -TRIA37.5 PO
[2021-02-03] MEDS ORDERED: CeleBREX 200 MG CAP PO SCH (10:00)
[2021-02-03] MEDS ORDERED: ceFAZolin 1000MG 1,000 MG/7.5 ML SYR IV SCH (10:00)
[2021-02-03] MEDS ORDERED: ACETAMINOPHEN 500 MG TAB PO SCH (10:00)
[2021-02-03] MEDS ORDERED: GABAPENTIN 300 MG CAP PO SCH (10:00)
[2021-02-03] MEDS ORDERED: fentaNYL citrate 100 MCG/2 ML VIAL ONE (10:35)
[2021-02-03] MEDS ORDERED: MIDAZOLAM HCL 1 MG/ML 2ML VIAL ONE (10:35)
[2021-02-03] MEDS ORDERED: ePHEDrine sulfate 50 MG/ML AMP IV PRN (11:07)
[2021-02-03] MEDS ORDERED: HYDROmorphone INJ 2 MG/ML SYR/VIAL IV PRN (11:07)
[2021-02-03] MEDS ORDERED: ONDANSETRON INJ 2 MG/ML 2 ML VIAL IV PRN ×2 (11:07→15:09)
[2021-02-03] MEDS ORDERED: PROMETHAZINE HCL 6.25 MG in SODIUM CHLORIDE 0.9% 50 ML IV PRN (11:07)
[2021-02-03] MEDS ORDERED: ATROPINE SULFATE 0.1 MG/ML 10ML SYR IV PRN (11:07)
[2021-02-03] MEDS ORDERED: EPINEPHrine INJ 1 MG/ML AMP ONE (11:10)
[2021-02-03] MEDS ORDERED: BUPIVACAINE 0.5 % 5 MG/1 ML MPF 30ML VIAL ONE (11:10)
--- NOTE | 2021-02-03 11:10 | History & Physical Bridge Note ---
Date of Service February 03, 2021 History & Physical Bridge Note I have examined the patient, reviewed the History & Physical and in the interval since the performance of the History & Physical I have noted the following changes of clinical significance: no changes noted
--- NOTE | 2021-02-03 11:11 | History & Physical Report ---
Date of Service February 03, 2021 Assessment & Plan (1) Lumbar stenosis with neurogenic claudication: Plan: L3-L4 decompression fusion, L4-L5 hardware removal History of Present Illness Chief Complaint: Back and leg pain Primary Care Provider: Vasu Kaur MD This is a 80-year-old female known to the presents with current persistent back and leg pain. Failing course of nonoperative care she is here for surgical invention. Allergies Allergy/AdvReac Type Severity Reaction Status Date / Time amlodipine AdvReac Intermediate Ankle Verified 02/03/21 09:22 swelling Home Medications Medication Instructions Recorded Confirmed Type estradiol 1 mg tablet 0.5 mg PO QAM tab 01/24/19 02/03/21 History multivitamin (Daily Multi-Vitamin) 1 tab PO QAM 01/24/19 02/03/21 History acetaminophen 650 mg 650 mg PO Q12H PRN 01/28/20 02/03/21 History tablet,extended release (Tylenol Arthritis Pain) simvastatin 40 mg tablet 40 mg PO HS #90 tab 06/24/20 02/03/21 Rx apixaban 5 mg tablet (Eliquis) 5 mg PO BID #180 tab 10/08/20 02/03/21 Rx celecoxib 200 mg capsule 200 mg PO QAM 01/19/21 02/03/21 History metoprolol succinate 25 mg 25 mg PO QAM 01/19/21 02/03/21 History tablet,extended release 24 hr triamterene 37.5 1 cap PO QAM 01/19/21 02/03/21 History mg-hydrochlorothiazide 25 mg capsule Past Med/Surg History Medical History Atrial fibrillation Cervical stenosis of spinal canal Dysphagia History of SCC (squamous cell carcinoma) of skin Hyperlipidemia Osteoarthritis Stress incontinence Surgical History H/O spinal fusion H/O vaginal hysterectomy History of appendectomy History of colonoscopy History of esophagogastroduodenoscopy (EGD) History of tonsillectomy and adenoidectomy S/P lumbar fusion Status post Mohs surgery Status post placement of implantable loop recorder Family History Mother Hypertension Asthma Father COPD (chronic obstructive pulmonary disease) Hypertension Aunt Colorectal cancer Uncle Colorectal cancer Brother Hypertension Sister Melanoma Hypertension Other Myocardial infarction No family history of adverse response to anesthesia No significant family history Denies family history of Ovarian cancer Prostate cancer Breast cancer Social History Smoking Status: Never smoker Tobacco Type: Cigarettes Second Hand Exposure: Yes (as a child); Do You Dip or Chew Tobacco: No; Tobacco Cessation Education Requested by Patient: No Hx Alcohol Use: Yes Hx Substance Use: No Preferred Language: Italian Communication Ability: Effective Visual Impairment: Limited Hearing Ability: Normal Meter Supervisor Required: No Beliefs That Will Affect Care: None marital status: Current Living Situation: Spouse current occupational status: retired Other Information That Helps Us Care for You: No Feels Safe at Home: Yes Safety Concerns: Feels Safe At This Time Childhood Exposure to Second-Hand Smoke: Yes caffeine: Yes during the past year weight has: remained stable Dental Care, Regularly: Yes Physical Activity Frequency: 5-6 Times per Week Seatbelt Use: always Sunscreen Use: Yes Assistive Devices: Glasses Physical Exam Physical Exam: Patient is alert and oriented Heart regular rhythm Lungs clear to auscultation Results & Data ([facility]) Vital Signs (Past 12 Hours) Vital Signs Temp Pulse Resp BP Pulse Ox 02/03/21 09:37 36.6 C 71 20 173/76 H 99
[2021-02-03] MEDS ORDERED: HYDROmorphone INJ 2 MG/ML SYR/VIAL ONE (12:07)
[2021-02-03] MEDS ORDERED: LIDOCAINE 2% 2 ML VIAL/AMP(20MG/ML) INFIL ONE (12:09)
[2021-02-03] MEDS ORDERED: PHENYLEPHRINE 100MCG/ML 5ML SYR ONE (12:09)
[2021-02-03] MEDS ORDERED: GLYCOPYRROLATE 0.2 MG/ML VIAL ONE (12:09)
[2021-02-03] MEDS ORDERED: ROCURONIUM BROMIDE 10 MG/ML 5 ML VIAL IV ONE (12:09)
[2021-02-03] MEDS ORDERED: NEOSTIGMINE METHYLSULFATE 1 MG/ML 10ML VIAL ONE (12:09)
[2021-02-03] MEDS ORDERED: LARYING-O-JET KIT (LTA) ONE (12:09)
[2021-02-03] MEDS ORDERED: ePHEDrine sulfate 50 MG/ML SYR ONE (12:09)
[2021-02-03] MEDS ORDERED: PROPOFOL IV EMULSION 10 MG/ML 20 ML VIAL IV ONE (12:09)
[2021-02-03] MEDS ORDERED: DEXAMETHASONE SOD INJ 4 MG/ML VIAL ONE (12:09)
[2021-02-03] MEDS ORDERED: ONDANSETRON INJ 2 MG/ML 2 ML VIAL ONE (12:09)
[2021-02-03] MEDS ORDERED: FLOSEAL HEMOSTATIC MATRIX 10ML TOP ONE (12:14)
--- NOTE | 2021-02-03 13:12 | Operative Report ---
Post Operative Report Pre & Post Diagnosis Operation Date: 02/03/21 11:00 Pre-Op Diagnosis: Spinal Stenosis, Lumbar Region with Neurogenic Claudication Post-Op Diagnosis: Spinal Stenosis, Lumbar Region with Neurogenic Claudication I identified the patient and participated in the time-out.: Yes Procedure Operation Date: 02/03/21 11:00 Actual Procedures #1 Removal of posterior instrumentation L4-5. #2 exploration of fusion L4-5. #3 lumbar decompression with bilateral medial facetectomies and foraminotomies L2-3 and L3-4. #4 posterior spinal fusion L3-L4. #5 placed posterior instrumentation L3-L4. #6 interbody fusion L3-L4. #7 placement of peek cage 9 x 22 mm at L3-L4. #8 placement locally harvested morselized autograft in the posterior gutters. #9 placement infuse collagen sponge, and master graft in the posterior lateral gutters and I factor in the interbody space. Surgeon Andrae Beverly, Learning Disabilities Specialist Leti Sr Estimated Blood Loss 100 Findings Consistent with Post-Op Diagnosis Specimens None Indications This is a 80-year-old female who is here for the above-mentioned diagnosis after failing course of nonoperative care she is here for the above-mentioned procedure. Description of Procedure Patient was met with identified informed consent obtained. Patient was then taken to the operative suite underwent a patient placed in a prone position the Erick table on top of the Crow frame. All bony prominences well-padded eyes inspected to ensure no external pressure placed upon the. This point the lumbar spine was prepped and draped in a sterile fashion. Sharp dissection with the assistance of Bovie cautery performed down to and exposing the lamina and transverse processes of L3 and instrumentation at L4 and L5 bilaterally. Then proceeded move the hardware bilaterally explore the fusion mass noting it to be mature and intact. Informed complete laminectomy of L3 partial laminectomy L2 including bilateral medial facetectomies and foraminotomies addressing severe spinal stenosis. Pedicle screws were then placed in L3 and L4 bilaterally with assistance of fluoroscopy and the properly sized janell placed. By way of a transforaminal approach and left complete discectomy was performed endplates curetted to subcortical being bone and a 9 x 22 mm peek cage filled with I factor tapped in position. The rods were then locked in final position bilaterally. The transverse processes of L3 and L4 burred to subcortical bleeding bone. Infuse collagen sponge mass graft local autograft was placed in the posterior gutters. 15 round YANDEL drain inserted. The incision was then closed with 1 Vicryl to fascia 2-0 Vicryl subcutaneously and 4 Monocryl for final skin closure. Steri-Strip sterile dressings placed. Patient will continue PACU stable condition. Please note spinal cord monitoring was utilized at the procedure no changes noted. Lastly Leti Sr was present at the entire surgery while the patient positioning complex portions of the surgery and final skin closure. I attest to the content of the Intraoperative Record and any orders documented therein. Any exceptions are noted below.
--- NOTE | 2021-02-03 13:33 | Fluoroscopy Report ---
INTRAOPERATIVE RADIOGRAPHS CLINICAL HISTORY: Lumbar spinal fusion. Fluoroscopy time: 13 seconds. FINDINGS: 2 spot fluoroscopic views of the lumbar spine are presented. There is evidence of multileve l discectomy and spinal fusion in the lumbar spine. Interpedicular screws are seen in the mid lumbar region, reportedly at L3-L4. The orthopedic hardware appears intact. IMPRESSION: Intraoperative images of the lumbar spine as above. Electronically signed by: Carlos Alberto Urbina M.D. 02/03/2021 1:31 PM
[2021-02-03] MEDS: fentaNYL citrate 100 MCG/2 ML VIAL IV PRN ×2 (14:05→14:15)
--- NOTE | 2021-02-03 14:40 | Anesthesiology Progress Note ---
Date of Service February 03, 2021 Anesthesia Post Procedure Vital Signs Vital Signs: Temp Pulse Pulse Resp BP BP Pulse Ox 02/03/21 14:25 61 14 123/70 100 02/03/21 14:15 52 L 12 143/69 H 100 02/03/21 14:05 66 14 141/71 H 100 02/03/21 13:55 59 L 14 130/65 100 02/03/21 13:45 61 16 119/71 100 02/03/21 13:35 62 16 126/62 100 02/03/21 13:24 36.0 C L 59 L 14 151/80 H 100 02/03/21 09:37 36.6 C 71 20 173/76 H 99 Pain Intensity Left Lower Buttock: Pain Intensity: 7 Left Lower Back: Pain Intensity: 7 Lower Back: Pain Intensity: 4 Transfer of Care Handoff Completed per policy Notes Mental Status: alert / awake / arousable and participated in evaluation Patient Amnestic to Procedure: Yes Nausea / Vomiting: adequately controlled Pain: adequately controlled Airway Patency, RR, SpO2: stable & adequate BP & HR: stable & adequate Hydration State: stable & adequate Anesthetic Complications: no major complications apparent and Pt Satisfied with anesthetic care
[2021-02-03] MEDS ORDERED: LORazepam 0.5 MG/1 ML VIAL IV PRN (15:09)
[2021-02-03] MEDS ORDERED: bisacodyL 10 MG SUPP PR PRN (15:09)
[2021-02-03] MEDS ORDERED: HYDROmorphone INJ 0.5 MG/0.5 ML SYR IV PRN (15:09)
[2021-02-03] MEDS ORDERED: PROMETHAZINE HCL 12.5 MG in SODIUM CHLORIDE 0.9% 50 ML IV PRN (15:09)
[2021-02-03] MEDS ORDERED: DO NOT ADMINISTER PNEUMOCOCCAL VACCINE PRN (15:09)
[2021-02-03] MEDS ORDERED: FAMOTIDINE 20 MG TAB PO PRN (15:09)
[2021-02-03] MEDS ORDERED: hydrOXYzine HCl 25 MG TAB PO PRN (15:09)
[2021-02-03] MEDS ORDERED: diphenhydrAMINE Capsule 25 MG CAP PO PRN (15:09)
[2021-02-03] MEDS ORDERED: ONDANSETRON 4 MG OD TAB PO PRN (15:09)
[2021-02-03] MEDS ORDERED: DO NOT ADMINISTER FLU VACCINE PRN (15:09)
[2021-02-03] MEDS ORDERED: MAGNESIUM HYDROXIDE SUSP 30 ML UDC PO PRN (15:09)
[2021-02-03] MEDS ORDERED: NALOXONE HCL 0.4 MG/1 ML VIAL/CARP IV PRN (15:09)
[2021-02-03] MEDS ORDERED: LORazepam 0.5 MG TAB PO PRN (15:09)
[2021-02-03] MEDS ORDERED: METOCLOPRAMIDE HCL INJ 5 MG/ML 2 ML VIAL IV PRN (15:09)
[2021-02-03] MEDS ORDERED: SOD PHOSPHATE/SOD BIPHOSPHATE ENEMA 132 ML BTL PR PRN (15:09)
[2021-02-03] MEDS ORDERED: ACETAMINOPHEN 1,000 MG/100 ML VIAL IV PRN (15:09)
[2021-02-03] MEDS: SODIUM CHLORIDE 0.9% 1000ML 1,000 ML IV SCH (16:13)
[2021-02-03] MEDS: ceFAZolin 1000MG 1,000 MG/7.5 ML SYR IV SCH (21:09)
[2021-02-03] MEDS: DOCUSATE SODIUM/SENNA 50/8.6MG TAB PO SCH (21:10)
[2021-02-03] MEDS: SIMVASTATIN 40 MG TAB PO SCH (21:10)
[2021-02-03] MEDS: HYDROmorphone INJ 1 MG/ML SYRINGE IV PRN (21:15)
[2021-02-04] MEDS: HYDROmorphone INJ 1 MG/ML SYRINGE IV PRN (03:26)
[2021-02-04] MEDS: ceFAZolin 1000MG 1,000 MG/7.5 ML SYR IV SCH (03:26)
[2021-02-04] MEDS: SODIUM CHLORIDE 0.9% 1000ML 1,000 ML IV SCH (03:59)
[2021-02-04 05:55] LABS: Hematocrit (blood only) 37.3 % (37-47); Hemoglobin 12.3 g/dL (12.0-16.0); Immature Granulocytes # (auto) 0.01 K/uL (0.00-0.02); Immature Granulocytes % (auto) 0.1 %; Lymphocytes # (auto) 1.04 K/uL (1.2-3.4); Lymphocytes % (auto) 8.2 %; Mean Corpuscular Hemoglobin 31.1 pg (25-34); Mean Corpuscular Volume 94.4 fL (80-100); Mean Platelet Volume 9.9 fL (7.4-10.4); Monocytes # (auto) 0.17 K/uL (0.11-0.59); Monocytes % (auto) 1.3 %; Neutrophils # (auto) 11.43 K/uL (1.4-6.5); Neutrophils % (auto) 90.4 %; Platelet Count 201 K/uL (130-400); RDW Coefficient of Variation 14.1 % (11.5-14.5); RDW Standard Deviation 49.1 fL (36.4-46.3); Red Blood Count 3.95 M/uL (4.2-5.4); White Blood Count 12.65 K/uL (4.8-10.8)
[2021-02-04] MEDS: POLYETHYLENE (MIRALAX) 17 GM PACK PO SCH ×4 (06:10→23:22)
[2021-02-04 06:30] LABS: BUN Creatinine Ratio 19.7 (10-20); Calcium 7.7 mg/dl (8.5-10.1); Creatinine Clr Calc Pharmacy 75.8 ml/min; Est GFR (African American) 105.3 ml/min; Est GFR (Non-African American) 90.9 ml/min; Potassium 3.8 mmol/L (3.5-5.1)
[2021-02-04] MEDS: traMADol HCL 50 MG TABLET PO PRN ×2 (08:36→21:39)
[2021-02-04] MEDS: MULTIVITAMIN TAB PO SCH (09:14)
[2021-02-04] MEDS: estradioL 1 MG TAB PO SCH (09:14)
[2021-02-04] MEDS: TRIAMTERENE/HCTZ 37.5/25MG CAP PO SCH (09:14)
[2021-02-04] MEDS: METOPROLOL SUCC 25MG EXT REL TAB PO SCH (09:14)
[2021-02-04] MEDS: oxyCODONE HCL IR 5 MG TAB (IMMEDIATE RELEASE) PO PRN ×2 (11:40→16:29)
--- NOTE | 2021-02-04 11:52 | Orthopedic Progress Note ---
Date of Service February 04, 2021 Assessment & Plan (1) Lumbar stenosis with neurogenic claudication: Plan: At this time we will continue physical therapy monitor her YANDEL output hopefully discharge home the next day or so. Admission and Anticipated Discharge Date Admission Date: February 03, 2021 Subjective Back pain is controlled leg symptoms markedly improved. Physical Exam Physical Exam: Patient has good strength testing. Sitting in the chair. Results & Data ([facility]) Vital Signs (Past 12 Hours) Vital Signs Temp Pulse Resp BP Pulse Ox 02/04/21 09:13 65 117/63 02/04/21 07:27 36.6 C 66 16 109/62 92 02/04/21 03:19 36.4 C L 68 16 144/70 H 96
--- NOTE | 2021-02-04 13:33 | Hospitalist Consultation ---
Date of Consultation February 04, 2021 Assessment & Plan (1) Paroxysmal atrial fibrillation: - Currently examines in NSR - Eliquis has been on hold pre-operatively will need surgical input on when to resume - Continue Toprol XL 25 mg daily (2) Diastolic dysfunction: - Well compensated - IVF have been discontinued; no evidence of volume overload - Continue triamterene/HCTZ daily to assist with fluid balance and renal function stable and hemodynamically stable (3) Valvular heart disease: - [facility] cardiology - Monitor fluid status (4) Essential hypertension: - STABLE - Continue Toprol XL and Triamterene/HCTZ (5) Dysphagia: - Chronic/Stable - Appropriate positioning of head during meals with mindfulness of surgical limitations - Alternate food with sips of liquid; avoid dry foods (6) Hyperlipidemia: - Continue Simvastatin 40 mg HS (7) Lumbar stenosis with neurogenic claudication: - S/P Decompression/Fusion on 03 February; EBL 100 cc - Pain management, DVT prophylaxis, PT/OT, surgical management per primary team Disposition: - PT/OT evaluations to determine needs - To determine when to resume Eliquis - Hospitalist team will continue to follow Supervising Physician Co-Signing Physician Notes Patient seen and examined with Laura Gan PA-C. I agree with her exam findings, review of systems, assessment and plan. I personally reviewed the lab work and imaging as well. patient doing well s/p lumbar surgery reviewed medical history - Paroxysmal atrial fibrillation: in NSR, continue Toprol, resume Eliquis when okay with spine surgery - HTN: continue Toprol, Triamterene/HCTZ, check BMP in AM will follow along, thank you for this consult History of Present Illness Reason for Consultation: Medical Management Attending Physician: Andrae Beverly DO History of Present Illness Ms. Dan is a 80 y/o female with PMHx of PAF, Valvular Heart Disease, HTN, HLD, Grade II Diastolic Dysfunction, Dysphagia, and Lumbar Stenosis S/P Decompression/Fusion on 03 February. Hospitalists consulted for medical management. Pt was cleared by cardiology prior to surgery. EBL from surgery is 100 cc. She has been off her Eliquis prior to surgery and currently assesses in NSR. Her pain is adequately controlled at this time. No signs of decompensation in regards to fluid balance. She had a bowel movement recently and continues a bowel regimen at this time. Tolerating diet without any issues. Anticipates return home upon discharge from hospital. Allergies Allergy/AdvReac Type Severity Reaction Status Date / Time amlodipine AdvReac Intermediate Ankle Verified 02/03/21 09:22 swelling Home Medications Medication Instructions Recorded Confirmed Type estradiol 1 mg tablet 0.5 mg PO QAM tab 01/24/19 02/03/21 History multivitamin (Daily Multi-Vitamin) 1 tab PO QAM 01/24/19 02/03/21 History acetaminophen 650 mg 650 mg PO Q12H PRN 01/28/20 02/03/21 History tablet,extended release (Tylenol Arthritis Pain) simvastatin 40 mg tablet 40 mg PO HS #90 tab 06/24/20 02/03/21 Rx apixaban 5 mg tablet (Eliquis) 5 mg PO BID #180 tab 10/08/20 02/03/21 Rx celecoxib 200 mg capsule 200 mg PO QAM 01/19/21 02/03/21 History metoprolol succinate 25 mg 25 mg PO QAM 01/19/21 02/03/21 History tablet,extended release 24 hr triamterene 37.5 1 cap PO QAM 01/19/21 02/03/21 History mg-hydrochlorothiazide 25 mg capsule oxycodone 5 mg tablet 5 mg PO Q6H PRN #30 tab 02/04/21 Rx tramadol 50 mg tablet 50 mg PO Q6H PRN #30 tab 02/04/21 Rx Patient History Medical History Atrial fibrillation on Eliquis, follows with [facility] cardiology Cervical stenosis of spinal canal Dysphagia chronic, unchanged since cervical surgery (~ 5 years ago) History of SCC (squamous cell carcinoma) of skin Hyperlipidemia Osteoarthritis Stress incontinence Surgical History H/O spinal fusion Cervical fusion, C5-C6 H/O vaginal hysterectomy History of appendectomy History of colonoscopy History of esophagogastroduodenoscopy (EGD) History of tonsillectomy and adenoidectomy S/P lumbar fusion x3 total L5-S1 hardware removal, L4-L5 decompression + PSF (09/22/17): Grade 1 view, Glidescope #3, ETT 7.0 at [facility] Status post Mohs surgery Status post placement of implantable loop recorder Implanted for palpitations evaluation (joanne barros) Family History Mother Hypertension Asthma Father COPD (chronic obstructive pulmonary disease) Hypertension Aunt Colorectal cancer Uncle Colorectal cancer Brother Hypertension Sister Melanoma Hypertension Other Myocardial infarction No family history of adverse response to anesthesia No significant family history Denies family history of Ovarian cancer Prostate cancer Breast cancer Social History Smoking Status: Never smoker Tobacco Type: Cigarettes Second Hand Exposure: Yes (as a child); Do You Dip or Chew Tobacco: No; Tobacco Cessation Education Requested by Patient: No Hx Alcohol Use: Yes Hx Substance Use: No Preferred Language: Romanian Communication Ability: Effective Visual Impairment: Limited Hearing Ability: Normal Operator Technician Required: No Beliefs That Will Affect Care: None marital status: Current Living Situation: Spouse current occupational status: retired Other Information That Helps Us Care for You: No Feels Safe at Home: Yes Safety Concerns: Feels Safe At This Time Childhood Exposure to Second-Hand Smoke: Yes caffeine: Yes during the past year weight has: remained stable Dental Care, Regularly: Yes Physical Activity Frequency: 5-6 Times per Week Seatbelt Use: always Sunscreen Use: Yes Assistive Devices: Glasses and Walker Review of Systems Review of Systems: REVIEW OF SYSTEMS General/Constitutional: Denies fever/chills, fatigue, weakness ENT: + chronic dysphagia 2/2 previous cervical surgery; Denies visual changes, nasal drainage, hearing loss, sore throat Cardiovascular: Denies chest pain, palpitations, edema Respiratory: Denies cough, sputum, SOB, wheezing, orthopnea GI: Denies nausea, vomiting, abdominal pain, constipation, diarrhea, melena/hematochezia : + chapman placement; Denies dysuria, frequency, hematuria Musculoskeletal: Denies joint/muscle aches, weakness, swelling Neurologic: Denies dizziness/lightheadedness, numbness/tingling, weakness Hematologic/Lymphatic: Denies bleeding/clotting abnormalities Skin: Denies rash, itch, new skin changes, easy bruising Physical Exam Physical Exam: PHYSICAL EXAM General Appearance: WDWN in NAD who is A&O x 3 HEENT: Head is normocephalic/atraumatic; Hearing grossly intact; Mucous membranes moist; Pharynx negative for exudate/lesions Neck: Supple; Trachea midline; Neg JVD; Neg lymphadenopathy Heart: RRR with no M/G/R Lungs: CTA in all lung nava bilaterally; Respirations unlabored; Neg accessory muscle use Abdomen: Soft, non-tender, non-distended; Positive BS x 4 quadrants; Neg organomegaly Extremities: + YANDEL drain intact to surgical back site; Capillary refill < 2 seconds; Neg cyanosis or edema Neurological: Speech clear; Gross motor/sensory function intact; Neg focal neurologic deficits Psychiatric: Appropriate mood/affect Skin: Normal Color; Warm/Dry; Neg rashes, ecchymosis, lacerations/ulcerations Results & Data Results & Data ([facility]) Vital Signs (Past 12 Hours) Vital Signs Temp Pulse Resp BP Pulse Ox 02/04/21 09:13 65 117/63 02/04/21 07:27 36.6 C 66 16 109/62 92 02/04/21 03:19 36.4 C L 68 16 144/70 H 96 PG Care Time/CCT Total # of Minutes Spent Total Time Spent with Patient: Total time spent is greater than 50% in coordination of care (as documented) at patient's floor/unit and/or counseling patient: Coding Level of Care Code 89930 Inpt Consult Level 3 Diagnoses Paroxysmal atrial fibrillation I48.0 Lumbar stenosis with neurogenic claudication M48.062 Dysphagia R13.10 Dysphagia type: unspecified Hyperlipidemia E78.5 Hyperlipidemia type: unspecified Essential hypertension I10 Valvular heart disease I38 Diastolic dysfunction I51.89 (1) Dysphagia Dysphagia type: unspecified Qualified Code(s): R13.10 - Dysphagia, unspecified (2) Hyperlipidemia Hyperlipidemia type: unspecified Qualified Code(s): E78.5 - Hyperlipidemia, unspecified
[2021-02-04] MEDS: DOCUSATE SODIUM/SENNA 50/8.6MG TAB PO SCH (20:15)
[2021-02-04] MEDS: SIMVASTATIN 40 MG TAB PO SCH (20:15)
[2021-02-05] MEDS: ALUMINUM/MAGNESIUM SUSP 30 ML UDC PO PRN ×2 (01:01→08:58)
[2021-02-05] MEDS: POLYETHYLENE (MIRALAX) 17 GM PACK PO SCH ×4 (04:54→23:28)
[2021-02-05] MEDS: TRIAMTERENE/HCTZ 37.5/25MG CAP PO SCH (08:23)
[2021-02-05] MEDS: estradioL 1 MG TAB PO SCH (08:23)
[2021-02-05] MEDS: METOPROLOL SUCC 25MG EXT REL TAB PO SCH (08:23)
[2021-02-05] MEDS: MULTIVITAMIN TAB PO SCH (08:24)
[2021-02-05] MEDS: dexAMETHasone 8 MG in SYRINGE 0 ML IV SCH (08:24)
--- NOTE | 2021-02-05 08:36 | Orthopedic Progress Note ---
Date of Service February 05, 2021 Assessment & Plan (1) Lumbar stenosis with neurogenic claudication: Plan: Patient will continue physical therapy today. Maintain YANDEL drain. Continue with pain control. DVT prophylaxis is in the form of teds and SCDs. Continue with a ggressive bowel regimen. Anticipate discharge home tomorrow Admission and Anticipated Discharge Date Admission Date: February 03, 2021 Supervising Physician Co-Signing Physician Notes Dr. Andrae Beverly Subjective Patient is postoperative day 2 lumbar decompression and fusion revision in nature. Has a bit more back pain today. Denies radicular leg pain. YANDEL drain output last shift was 40 cc. Yesterday in physical therapy she was able to ambulate roughly 200 feet. She has some mild abdominal discomfort. Passing flatus but no bowel movement. Review of Systems Review of Systems: See HPI Physical Exam Physical Exam: She is sitting on the side of the bed eating breakfast. Strength is intact bilateral lower extremities No acute distress Lumbar dressing is clean dry and intact with functioning YANDEL drain Calves soft nontender bilaterally Results & Data ([facility]) Vital Signs (Past 12 Hours) Vital Signs Temp Pulse Pulse Resp BP Pulse Ox 02/05/21 07:45 36.6 C 68 16 146/77 H 96 02/04/21 23:25 36.6 C 75 16 146/64 H 97
--- NOTE | 2021-02-05 08:41 | Hospitalist Progress Note ---
Date of Service February 05, 2021 Assessment & Plan (1) Paroxysmal atrial fibrillation: Plan: - Currently examines in NSR - Eliquis has been on hold pre-operatively will need surgical input on when to resume - Continue Toprol XL 25 mg daily (2) Diastolic dysfunction: Plan: - Well compensated - IVF have been discontinued; no evidence of volume overload - Continue triamterene/HCTZ daily to assist with fluid balance and renal function stable and hemodynamically stable (3) Valvular heart disease: Plan: - [place] [facility] [place] - Monitor fluid status (4) Essential hypertension: Plan: - STABLE - Continue Toprol XL and Triamterene/HCTZ (5) Dysphagia: Plan: - Chronic/Stable - Appropriate positioning of head during meals - Alternate food with sips of liquid; avoid dry foods (6) Hyperlipidemia: Plan: - Continue Simvastatin 40 mg HS (7) Lumbar stenosis with neurogenic claudication: Plan: - S/P Decompression/Fusion on 03 February; EBL 100 cc - Continue bowel regimen and ambulation - mild bloating but active BS x 4 quadrants; monitor for ileus - Pain management, DVT prophylaxis, PT/OT, surgical management per primary team Disposition: - To determine when to resume Eliquis - Hospitalist team will continue to follow Admission and Anticipated Discharge Date Admission Date: February 03, 2021 Subjective Pt reports overall doing well sitting up at the edge of the bed. Didn't sleep well and pain a bit increased today but the pain regimen seems to help. She is starting to get bloating like she will need to move her bowels and is utilizing a bowel regimen and about to participate in PT. Bowel sounds are active x 4 quadrants. Tolerating diet. Verbalizes no other complaints at this time. Review of Systems Review of Systems: REVIEW OF SYSTEMS General/Constitutional: + tiredness; Denies fever/chills ENT: Denies visual changes, nasal drainage, hearing loss, sore throat Cardiovascular: Denies chest pain, palpitations, edema Respiratory: Denies cough, sputum, SOB, wheezing, orthopnea GI: + bloating; Denies nausea, vomiting, abdominal pain : Denies dysuria, frequency, hematuria Musculoskeletal: + back pain; Denies other joint/muscle aches, weakness, swelling Neurologic: Denies dizziness/lightheadedness, numbness/tingling Hematologic/Lymphatic: Denies bleeding/clotting abnormalities Skin: Denies rash, itch, new skin changes, easy bruising Physical Exam Physical Exam: PHYSICAL EXAM General Appearance: WDWN in NAD who is A&O x 3 HEENT: Head is normocephalic/atraumatic; Hearing grossly intact; Mucous membranes moist Neck: Supple; Trachea midline; Neg JVD Heart: RRR with no M/G/R Lungs: CTA in all lung nava bilaterally; Respirations unlabored; Neg accessory muscle use Abdomen: + mild bloating; Soft, non-tender; Positive BS x 4 quadrants Extremities: + YANDEL drain intact to surgical back site; Capillary refill < 2 seconds; Neg cyanosis or edema Neurological: Speech clear; Gross motor/sensory function intact; Neg focal neurologic deficits Psychiatric: Appropriate mood/affect Skin: Normal Color; Warm/Dry; Neg rashes, ecchymosis, lacerations/ulcerations Results & Data Results & Data ([facility]) Vital Signs (Past 12 Hours) Vital Signs Temp Pulse Pulse Resp BP Pulse Ox 02/05/21 07:45 36.6 C 68 16 146/77 H 96 02/04/21 23:25 36.6 C 75 16 146/64 H 97 PG Care Time/CCT Total # of Minutes Spent Total Time Spent with Patient: Total time spent is greater than 50% in coordination of care (as documented) at patient's floor/unit and/or counseling patient: Coding Level of Care Code 89997 Inpt Consult Level 2 Diagnoses Paroxysmal atrial fibrillation I48.0 Diastolic dysfunction I51.89 Valvular heart disease I38 Essential hypertension I10 Dysphagia R13.10 Dysphagia type: unspecified Hyperlipidemia E78.5 Hyperlipidemia type: unspecified Lumbar stenosis with neurogenic claudication M48.062 (1) Dysphagia Dysphagia type: unspecified Qualified Code(s): R13.10 - Dysphagia, unspecified (2) Hyperlipidemia Hyperlipidemia type: unspecified Qualified Code(s): E78.5 - Hyperlipidemia, unspecified
[2021-02-05] MEDS: oxyCODONE HCL IR 5 MG TAB (IMMEDIATE RELEASE) PO PRN (08:57)
[2021-02-05] MEDS: ACETAMINOPHEN 500 MG TAB PO PRN (18:21)
[2021-02-05] MEDS: DOCUSATE SODIUM/SENNA 50/8.6MG TAB PO SCH (20:27)
[2021-02-05] MEDS: SIMVASTATIN 40 MG TAB PO SCH (20:27)
[2021-02-06] MEDS: ALUMINUM/MAGNESIUM SUSP 30 ML UDC PO PRN (01:38)
[2021-02-06] MEDS: ACETAMINOPHEN 500 MG TAB PO PRN (02:38)
[2021-02-06] MEDS: POLYETHYLENE (MIRALAX) 17 GM PACK PO SCH (05:38)
[2021-02-06] MEDS: MULTIVITAMIN TAB PO SCH (09:09)
[2021-02-06] MEDS: TRIAMTERENE/HCTZ 37.5/25MG CAP PO SCH (09:10)
[2021-02-06] MEDS: estradioL 1 MG TAB PO SCH (09:10)
[2021-02-06] MEDS: METOPROLOL SUCC 25MG EXT REL TAB PO SCH (09:11)
[2021-02-06] MEDS: dexAMETHasone 8 MG in SYRINGE 0 ML IV SCH (09:12)
--- NOTE | 2021-02-06 09:58 | Discharge Summary ---
Date of Service February 06, 2021 Admission HPI Per Admitting Provider This is a 80-year-old female known to the presents with current persistent back and leg pain. Failing course of nonoperative care she is here for surgical invention. Principal Diagnosis Lumbar spinal stenosis with neurogenic medication Discharge Data Allergies Allergy/AdvReac Type Severity Reaction Status Date / Time amlodipine AdvReac Intermediate Ankle Verified 02/03/21 09:22 swelling Consultations 02/03/21 15:09 Consult Hospitalist Routine Procedures Performed Operation Date: 02/03/21 11:00 Actual Procedures p L3-L4 Decompression Fusion, Spinal Cord Monitoring(Not Applicable) - Andrae Beverly DO s L4-L5 Hardware Removal(Not Applicable) - Andrae Beverly DO Ordered Studies 02/03/21 11:00 FL lumbar spine 2-3V Routine Hospital Course (1) Lumbar stenosis with neurogenic claudication: Patient with lumbar decompression fusion trial as well as taken orthopedic for postoperative. Postop day one she was up and ambulating progressive postop day #2 on postop day #3 pain was well controlled excellent strength testing. YANDEL drain decreasing appropriately. Subsequently discharged home. Discharge orders and instructions found in the chart for further review. Total Time Total Time Spent Total Time Spent (In Minutes): 20 minutes Discharge Plan Discharge Items Patient Disposition: Home - Self-Care Reason For Visit: Spinal Stenosis, Lumbar Region with Neurogenic Cla Discharge Diagnosis: Lumbar spinal stenosis with neurogenic claudication Activity: As commented below Non-emergency contact: Primary Care Provider Call non-emergency contact if: you have any medication questions Follow-up/Referrals: Sanjay Kaur MD [Primary Care Provider] - Diet: Regular Addtl Attending Provider Instructions: ACTIVITY RECOMMENDATIONS: SELF CARE INSTRUCTIONS AFTER THORACIC/LUMBAR FUSIONS 1. You may walk to your tolerance. It is good exercise for your legs and back. Expect some back and intermittent leg aches and pains. 2. You may perform "counter-top" level activities (make a sandwich, josette with a project, etc.). 3. No bending or lifting of more than 10 pounds or back twisting of any nature (roll like a log when turning in bed). 4. You may ride in a car for 20-30 minutes at a time. No driving until after your first visit with your doctor. 5. Frequent changes of position and restricting sitting to 30 minutes at a time will help limit the amount of back spasms and stiffness you may experience. 6. You may discontinue the use of ambulatory aids (cane, crutches, etc.) once your strength and confidence allow. 7. You may wet machine cutter the shower and let water strike your incision when you arrive home at least once daily. Do not take a tub bath, sit in a hot tub or go into a swimming pool until after your first recheck in the office. SPECIAL CARE INSTRUCTIONS: VERY IMPORTANT TO READ AND REVIEW A. Your surgical incision has been closed with a cosmetic suture under the skin that will dissolve in about 6 weeks. In 14 days, you can use a pair of clean scissors and cut the suture that is left outside of the skin at the ends of your incision. 1. The small skin tapes can be removed 7 days after surgery if they have not fallen off by that point. 2. You may keep the wound open to air as much as possible to promote healing after post-op day number 5 unless told otherwise by your doctor. 3. If you think the wound looks like it is becoming infected (redness or worsening drainage) and/or you are experiencing fever, chill or worsening back pain and muscle spasms, contact the office so that we may evaluate you as soon as possible. B. Complications are uncommon, but please contact us if you have any signs or symptoms of: 1. wound infection (fever higher than 102.5 degrees F, redness, separation of wound, drainage, or increasing pain from the incision) 2. blood clots in legs (pain, swelling, redness and warmth in legs) 3. urinary tract infection (fever higher than 102.5 degrees F, burning upon urination or increased frequency of urination) 4. nerve problems (inability to walk on your toes or heels, numbness, loss of bowel or bladder control) 5. any other symptoms that concern you C. Please call the office at if you have any concerns or questions about your operation or recovery. D. No smoking! Smoking drastically decreases the chance of a solid fusion. E. Do not take any anti-inflammatory medications (Indocin, Advil, Motrin, Aspirin, Naprosyn, etc.) as these may inhibit the chance of a solid fusion. Tylenol is okay to take for pain. MANAGING PAIN AFTER SPINAL SURGERY 1. Narcotic medication is intended for short-term use and will be provided for surgical pain. Surgical pain usually lasts for a period of 4-6 weeks. Narcotic medication includes Percocet, Vicodin, Darvocet, Tylenol #3 or Lortab. 2. Longer-term pain is more appropriately treated with non-narcotic medication such as Tylenol ES. 3. Muscle spasm is not appropriately treated with narcotics. Muscle relaxers such as Soma, Flexeril or Skelaxin can be used along with Tylenol ES. 4. Remember that we all live with some "aches and pains". This is not unusual or uncommon after an injury or as we get older. a. Back pain is expected and may include muscle spasms for 4 to 6 weeks after surgery. The pain should gradually improve. If the pain worsens for no apparent reason, please contact the office. b. Intermittent leg pain may also be experienced and should not be concerned about unless it worsens for no apparent reason. If so, please contact the office. 5. We will provide appropriate medication within the normal guidelines of their prescribed use. We will also be very cautious and aware of potential abuse and extended duration of patients' medication needs. a. Pain medications are for your comfort and to assist with sleep and rest so that the tissue can heal. They are not provided in order to return to normal activity and should not be used through the day. To do so or worsening pain at night can result from ongoing tissue damage and development of tolerance to the prescribed medicine. 6. Please allow 2-3 days to process refills. Prescriptions will not be mailed but must be picked up at the office. FOLLOW UP VISIT: Keep your scheduled follow-up appointment. Any questions, please call the office at . Pending Studies at Discharge: No Stand-Alone Forms: [employer], Smoking Cessation Medications and DC Order Prescriptions: New oxycodone 5 mg tablet 5 mg PO Q6H PRN (Reason: pain, severe) Qty: 30 RF: 0 tramadol 50 mg tablet 50 mg PO Q6H PRN (Reason: pain, moderate) Qty: 30 RF: 0 Continued simvastatin 40 mg tablet 40 mg PO HS Qty: 90 RF: 3 Eliquis 5 mg tablet 5 mg PO BID Qty: 180 RF: 3 multivitamin [Daily Multi-Vitamin] tablet 1 tab PO QAM RF: 0 estradiol 1 mg tablet 0.5 mg PO QAM RF: 0 acetaminophen [Tylenol Arthritis Pain] 650 mg tablet extended release 650 mg PO Q12H PRN (Reason: Pain) RF: 0 celecoxib 200 mg capsule 200 mg PO QAM RF: 0 triamterene-hydrochlorothiazid 37.5-25 mg capsule 1 cap PO QAM RF: 0 metoprolol succinate 25 mg tablet extended release 24 hr 25 mg PO QAM RF: 0 Discharge Orders: Discharge Order (Routine); Ordered 02/06/21 Ordered By: Andrae Beverly Admission Data Admit Date/Time: 02/03/21 13:15 Attending Provider: Andrae Beverly Admit Provider: Andrae Beverly Primary Care Provider: Sanjay Kaur Other Providers: Daniel Dan
== END 2021-02-06 13:23 | disposition home or self-care (01) | DRG 454 ==
LOC: ASU 09:08 → 3E 13:15